=== PATIENT | female | born 1985 | race Caucasian/White ===

== ENCOUNTER 2018-07-25 12:36 | Emergency (ER) | payer MEDICAID ==
--- NOTE | 2018-07-25 13:05 | EDM.PDOC ---
ED HPI GENERAL MEDICAL PROBLEM - General Chief Complaint: Back Pain or Injury Stated Complaint: BACK PAIN Time Seen by Provider: 07/25/18 12:45 Source of Information: Reports: Patient History Limitations: Reports: No Limitations - History of Present Illness INITIAL COMMENTS - FREE TEXT/NARRATIVE: History of present illness: []Patient has chronic back pain since 2010 and recently moved here and is requesting pain medicines. Patient was here on July 20 and was not given any pain meds. She states that she has a pain doctor locally but refuses to give her pain meds because she admitted to using marijuana for pain. She has no new or changes in symptoms or new injuries. She denies any numbness or tingling or urinary or fecal incontinence. Review of systems: As per history of present illness and below otherwise all systems reviewed and negative. Past medical history: As per history of present illness and as reviewed below otherwise noncontributory. Surgical history: As per history of present illness and as reviewed below otherwise noncontributory. Social history: No reported history of drug or alcohol abuse. Family history: As per history of present illness and as reviewed below otherwise noncontributory. Physical exam: General: Well developed, well nourished in NAD HEENT: Atraumatic, normocephalic, pupils reactive, negative for conjunctival pallor or scleral icterus, mucous membranes moist, throat clear, neck supple, nontender, trachea midline. Lungs: Clear to auscultation, breath sounds equal bilaterally, chest nontender. Heart: S1S2, regular, negative for clicks, rubs, or JVD. Abdomen: Soft, nondistended, nontender. Negative for masses or hepatosplenomegaly. Negative for costovertebral tenderness. Pelvis: Stable nontender. Genitourinary: Deferred. Rectal: Deferred. Extremities: Atraumatic, negative for cords or calf pain. Neurovascular unremarkable. Neuro: Awake, alert, oriented. Cranial nerves II through XII unremarkable. Cerebellum unremarkable. Motor and sensory unremarkable throughout. Exam nonfocal. straight leg raise negative Skin:warm and dry Diagnostics: None Therapeutics: None ED Course: Unremarkable Impression: Chronic low back pain Prescriptions: Diclofenac # 20 tablets Plan: Follow-up primary care Definitive disposition and diagnosis as appropriate pending reevaluation and review of above. back Pain Score (Numeric/FACES): 9 - Related Data Allergies Allergy/AdvReac Type Severity Reaction Status Date / Time Penicillins Allergy Anaphylactic Verified 07/20/18 13:41 Shock ziprasidone [From Geodon] Allergy Anaphylactic Verified 07/25/18 13:02 Shock Home Meds: Home Meds Hydrocodone/Acetaminophen [Hydrocodon-Acetaminophen 5-325] 1 - 2 tab PO DAILY [History] Methylphenidate HCl [Ritalin] 10 mg PO DAILY 07/20/18 [History] Pantoprazole [ProTONIX] 40 mg PO DAILY 07/20/18 [History] Prazosin HCl [Prazosin] 4 mg PO DAILY 07/20/18 [History] QUEtiapine [SEROquel] 300 mg PO DAILY 07/20/18 [History] Topiramate 300 mg PO DAILY 07/20/18 [History] Diclofenac Sodium [Voltaren] 75 mg PO BIDMEALS PRN #20 tab.cr 07/25/18 [Rx] Past Medical History - Past Health History Medical/Surgical History: Denies Medical/Surgical History HEENT History: Reports: None Cardiovascular History: Reports: None Respiratory History: Reports: Asthma Gastrointestinal History: Reports: None Genitourinary History: Reports: None 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 Musculoskeletal History: Reports: None Neurological History: Reports: None Psychiatric History: Reports: Other (See Below) Other Psychiatric History: psych illness per pt Endocrine/Metabolic History: Reports: None Hematologic History: Reports: None Immunologic History: Reports: None Oncologic (Cancer) History: Reports: None Dermatologic History: Reports: None - Infectious Disease History Infectious Disease History: Reports: None - Past Surgical History Head Surgeries/Procedures: Reports: None HEENT Surgical History: Reports: None Cardiovascular Surgical History: Reports: None Respiratory Surgical History: Reports: None GI Surgical History: Reports: None Female Surgical History: Reports: None Endocrine Surgical History: Reports: None Neurological Surgical History: Reports: None Musculoskeletal Surgical History: Reports: None Oncologic Surgical History: Reports: None Dermatological Surgical History: Reports: None Social & Family History - Family History Family Medical History: Noncontributory Psychiatric: Reports: Depression - Caffeine Use Caffeine Use: Reports: Coffee ED ROS GENERAL - Review of Systems Review Of Systems: ROS reveals no pertinent complaints other than HPI. ED EXAM,LOWER BACK PAIN/INJURY - Physical Exam Exam: See Below (See history of present illness) Course - Vital Signs Last Recorded V/S: Last Vital Signs Temp 97.1 F 07/25/18 12:52 Pulse 89 07/25/18 12:52 Resp 20 07/25/18 12:52 BP 137/87 07/25/18 12:52 Pulse Ox 98 07/25/18 12:52 Departure - Departure Time of Disposition: 13:00 Disposition: Home, Self-Care 01 Condition: Good Clinical Impression: Chronic low back pain Qualifiers: Back pain laterality: midline Sciatica presence: without sciatica Qualified Code(s): M54.5 - Low back pain - Discharge Information *PRESCRIPTION DRUG MONITORING PROGRAM REVIEWED*: No *COPY OF PRESCRIPTION DRUG MONITORING REPORT IN PATIENT ZEFERINO: No Prescriptions: Diclofenac Sodium [Voltaren] 75 mg PO BIDMEALS PRN #20 tab.cr PRN Reason: Pain Instructions: Back Pain, Adult, [id number], Chronic Back Pain Referrals: PCP,None [Primary Care Provider] - Forms: ED Department Discharge Additional Instructions: The following information is given to patients seen in the emergency department who are being discharged to home. This information is to outline your options for follow-up care. We provide all patients seen in our emergency department with a follow-up referral. The need for follow-up, as well as the timing and circumstances, are variable depending upon the specifics of your emergency department visit. If you don't have a primary care physician on staff, we will provide you with a referral. We always advise you to contact your personal physician following an emergency department visit to inform them of the circumstance of the visit and for follow-up with them and/or the need for any referrals to a consulting specialist. The emergency department will also refer you to a specialist when appropriate. This referral assures that you have the opportunity for follow-up care with a specialist. All of these measure are taken in an effort to provide you with optimal care, which includes your follow-up. Under all circumstances we always encourage you to contact your private physician who remains a resource for coordinating your care. When calling for follow-up care, please make the office aware that this follow-up is from your recent emergency room visit. If for any reason you are refused follow-up, please contact the [facility] Emergency Department at and asked to speak to the emergency department charge nurse. Diclofenac as directed follow-up with primary care. [facility] [address] [place] [id number]
== END 2018-07-25 13:10 | disposition home or self-care (01) ==
LOC: MW.ED 12:36
DX: G89.29 Other chronic pain (principal); M54.5 Low back pain; Z88.0 Allergy status to penicillin; Z88.8 Allergy status to other drugs, medicaments and biological substances; Z79.899 Other long term (current) drug therapy
CPT/HCPCS: 99282; 99283

== ENCOUNTER 2020-07-26 11:06 | Emergency (ER) | payer MEDICAID ==
[2020-07-26] MEDS ORDERED: Metoclopramide 10 MG/2 ML SDV IVPUSH ONE (11:17)
[2020-07-26] MEDS ORDERED: Morphine 4 MG/ML Syringe IVPUSH ONE ×2 (11:17→12:51)
[2020-07-26] MEDS ORDERED: Sodium Chloride 0.9% 1,000 ML IV ONE (11:17)
[2020-07-26] MEDS ORDERED: Sodium Chloride 0.9% 2.5 ML Syringe FLUSH PRN (11:17)
[2020-07-26] MEDS ORDERED: Sodium Chloride 0.9% 10 ML Syringe FLUSH PRN (11:17)
--- NOTE | 2020-07-26 11:45 | EDM.PDOC ---
ED HPI GENERAL MEDICAL PROBLEM - General Chief Complaint: Abdominal Pain Stated Complaint: ANDOMINAL PAIN Time Seen by Provider: 07/26/20 11:14 Source of Information: Reports: Patient History Limitations: Reports: No Limitations - History of Present Illness INITIAL COMMENTS - FREE TEXT/NARRATIVE: 35F PMHx psych problems, haital hernia, PSHx cholecystectomy presents for N/V and abdominal pain x5 days. Pain is mid-epigastric radiating to back and worsening. Unable to tolerate PO solid for a couple of days. Hasn't taken psych meds b/c can't keep anything down. No urinary symptoms. No fevers. abdominal, epigastric Pain Score (Numeric/FACES): 8 - Related Data Allergies Allergy/AdvReac Type Severity Reaction Status Date / Time Penicillins Allergy Anaphylactic Verified 07/26/20 11:19 Shock ziprasidone [From Geodon] Allergy Anaphylactic Verified 07/26/20 11:19 Shock Home Meds: Home Meds Pantoprazole [ProTONIX] 40 mg PO DAILY 07/20/18 [History] QUEtiapine [SEROquel] 300 mg PO DAILY 07/20/18 [History] Topiramate 100 mg PO BID 07/20/18 [History] Gabapentin [Neurontin] 100 mg PO TID 09/08/18 [History] Albuterol [Proair HFA] 1 - 2 puff INH Q4HR PRN 07/26/20 [History] Budesonide/Formoterol [Symbicort 160-4.5 MCG] 1 puff INH BID 07/26/20 [History] Lisdexamfetamine Dimesylate [Vyvanse] 40 mg PO DAILY 07/26/20 [History] Metoclopramide HCl [Reglan] 10 mg PO Q6H PRN #20 tablet 07/26/20 [Rx] Montelukast [Singulair] 10 mg PO DAILY 07/26/20 [History] Tiotropium [Spiriva HandiHaler] 1 dose INH DAILY 07/26/20 [History] busPIRone [Buspar] 30 mg PO DAILY 07/26/20 [History] hydrOXYzine HCL [hydrOXYzine] 2 tab PO DAILY PRN 07/26/20 [History] lisinopriL [Lisinopril] 20 mg PO DAILY 07/26/20 [History] traZODone HCl [Trazodone HCl] 200 mg PO BEDTIME 07/26/20 [History] Past Medical History - Past Health History Medical/Surgical History: Denies Medical/Surgical History HEENT History: Reports: None Cardiovascular History: Reports: None Respiratory History: Reports: Asthma Gastrointestinal History: Reports: Hiatal Hernia Genitourinary History: Reports: None 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 Musculoskeletal History: Reports: Back Pain, Chronic Neurological History: Reports: Seizure Psychiatric History: Reports: Anxiety, Bipolar, Depression, Mood Swings, Schizophrenia Other Psychiatric History: psych illness per pt Endocrine/Metabolic History: Reports: None Hematologic History: Reports: None Immunologic History: Reports: None Oncologic (Cancer) History: Reports: None Dermatologic History: Reports: None - Infectious Disease History Infectious Disease History: Reports: None - Past Surgical History Head Surgeries/Procedures: Reports: None HEENT Surgical History: Reports: None Cardiovascular Surgical History: Reports: None Respiratory Surgical History: Reports: None GI Surgical History: Reports: Cholecystectomy, Other (See Below) Other GI Surgeries/Procedures: STomach biopsy Female Surgical History: Reports: None Endocrine Surgical History: Reports: None Neurological Surgical History: Reports: None Musculoskeletal Surgical History: Reports: Other (See Below) Other Musculoskeletal Surgeries/Procedures:: 2 back surgeries Oncologic Surgical History: Reports: None Dermatological Surgical History: Reports: None Social & Family History - Family History Family Medical History: Noncontributory Psychiatric: Reports: Depression - Tobacco Use Smoking Status *Q: Current Every Day Smoker Years of Tobacco use: 20 Packs/Tins Daily: 0.5 - Caffeine Use Caffeine Use: Reports: Coffee, Energy Drinks, Soda, Tea - Recreational Drug Use Recreational Drug Use: Yes Drug Use in Last 12 Months: Yes Recreational Drug Type: Reports: Marijuana/Hashish Recreational Drug Use Frequency: Weekly ED ROS GENERAL - Review of Systems Review Of Systems: Comprehensive ROS is negative, except as noted in HPI. ED EXAM, GI/ABD - Physical Exam Exam: See Below Exam Limited By: No Limitations General Appearance: Alert, WD/WN, No Apparent Distress Throat/Mouth: Normal Voice, No Airway Compromise Head: Atraumatic, Normocephalic Neck: Normal Inspection Respiratory/Chest: No Respiratory Distress, Lungs Clear, Normal Breath Sounds, No Accessory Muscle Use Cardiovascular: Normal Peripheral Pulses, Regular Rate, Rhythm GI/Abdominal Exam: Soft, Non-Tender Extremities: Normal Inspection Neurological: Alert Psychiatric: Normal Affect, Normal Mood Skin Exam: Warm, Dry, Intact Course - Vital Signs Last Recorded V/S: Last Vital Signs Temp 97.1 F 07/26/20 13:35 Pulse 63 07/26/20 13:35 Resp 18 07/26/20 13:35 BP 127/69 07/26/20 13:35 Pulse Ox 96 07/26/20 13:35 - Orders/Labs/Meds Orders: Active Orders 24 hr Category Date Time Status Saline Lock Insert [OM.PC] Stat Oth 07/26/20 11:18 Ordered Labs: Laboratory Tests 07/26/20 07/26/20 07/26/20 Range/Units 11:27 11:27 11:27 WBC 10.00 (4.0-11.0) K/uL RBC 5.14 (4.30-5.90) M/uL Hgb 15.4 (12.0-16.0) g/dL Hct 44.4 (36.0-46.0) % MCV 86.4 (80.0-98.0) fL MCH 30.0 (27.0-32.0) pg MCHC 34.7 (31.0-37.0) g/dL RDW Std Deviation 43.3 (28.0-62.0) fl RDW Coeff of Mara 14 (11.0-15.0) % Plt Count 399 (150-400) K/uL MPV 9.40 (7.40-12.00) fL Neut % (Auto) 63.5 (48.0-80.0) % Lymph % (Auto) 25.7 (16.0-40.0) % Weak[place] % (Auto) 7.0 (0.0-15.0) % Eos % (Auto) 3.4 (0.0-7.0) % Baso % (Auto) 0.4 (0.0-1.5) % Neut # (Auto) 6.4 H (1.4-5.7) K/uL Lymph # (Auto) 2.6 H (0.6-2.4) K/uL Weakley # (Auto) 0.7 (0.0-0.8) K/uL Eos # (Auto) 0.3 (0.0-0.7) K/uL Baso # (Auto) 0.0 (0.0-0.1) K/uL Nucleated RBC % 0.0 /100WBC Nucleated RBCs # 0 K/uL Lactate 1.1 (0.20-2.00) mmol/L Sodium 139 (136-145) mmol/L Potassium 3.3 L (3.5-5.1) mmol/L Chloride 104 (98-107) mmol/L Carbon Dioxide 20.2 L (21.0-32.0) mmol/L BUN 7 (7.0-18.0) mg/dL Creatinine 1.1 H (0.6-1.0) mg/dL Est Cr Clr Drug Dosing 73.38 mL/min Estimated GFR (MDRD) 57.2 ml/min Glucose 104 (74-106) mg/dL Calcium 8.6 (8.5-10.1) mg/dL Magnesium 2.0 (1.8-2.4) mg/dL Total Bilirubin 0.5 (0.2-1.0) mg/dL AST 17 (15-37) IU/L ALT 29 (14-63) IU/L Alkaline Phosphatase 70 (46-116) U/L Total Protein 8.1 (6.4-8.2) g/dL Albumin 4.2 (3.4-5.0) g/dL Globulin 3.9 (2.6-4.0) g/dL Albumin/Globulin Ratio 1.1 (0.9-1.6) Lipase 68 L (73-393) U/L Urine Color Urine Appearance Urine pH (5.0-8.0) Ur Specific [place] (1.001-1.035) Urine Protein (NEGATIVE) mg/dL Urine Glucose (UA) (NEGATIVE) mg/dL Urine Ketones (NEGATIVE) mg/dL Urine Occult Blood (NEGATIVE) Urine Nitrite (NEGATIVE) Urine Bilirubin (NEGATIVE) Urine Ictotest Urine Urobilinogen (<2.0) EU/dL Ur Leukocyte Esterase (NEGATIVE) Urine RBC (0-2/HPF) Urine WBC (0-5/HPF) Ur Epithelial Cells (NONE-FEW) Amorphous Sediment (NEGATIVE) Urine Bacteria (NEGATIVE) Urine Mucus (NONE-MOD) Urine HCG, Qual (NEGATIVE) 07/26/20 07/26/20 Range/Units 11:30 11:30 WBC (4.0-11.0) K/uL RBC (4.30-5.90) M/uL Hgb (12.0-16.0) g/dL Hct (36.0-46.0) % MCV (80.0-98.0) fL MCH (27.0-32.0) pg MCHC (31.0-37.0) g/dL RDW Std Deviation (28.0-62.0) fl RDW Coeff of Mara (11.0-15.0) % Plt Count (150-400) K/uL MPV (7.40-12.00) fL Neut % (Auto) (48.0-80.0) % Lymph % (Auto) (16.0-40.0) % Weakley % (Auto) (0.0-15.0) % Eos % (Auto) (0.0-7.0) % Baso % (Auto) (0.0-1.5) % Neut # (Auto) (1.4-5.7) K/uL Lymph # (Auto) (0.6-2.4) K/uL Weakley # (Auto) (0.0-0.8) K/uL Eos # (Auto) (0.0-0.7) K/uL Baso # (Auto) (0.0-0.1) K/uL Nucleated RBC % /100WBC Nucleated RBCs # K/uL Lactate (0.20-2.00) mmol/L Sodium (136-145) mmol/L Potassium (3.5-5.1) mmol/L Chloride (98-107) mmol/L Carbon Dioxide (21.0-32.0) mmol/L BUN (7.0-18.0) mg/dL Creatinine (0.6-1.0) mg/dL Est Cr Clr Drug Dosing mL/min Estimated GFR (MDRD) ml/min Glucose (74-106) mg/dL Calcium (8.5-10.1) mg/dL Magnesium (1.8-2.4) mg/dL Total Bilirubin (0.2-1.0) mg/dL AST (15-37) IU/L ALT (14-63) IU/L Alkaline Phosphatase (46-116) U/L Total Protein (6.4-8.2) g/dL Albumin (3.4-5.0) g/dL Globulin (2.6-4.0) g/dL Albumin/Globulin Ratio (0.9-1.6) Lipase (73-393) U/L Urine Color YELLOW Urine Appearance SLT CLOUDY Urine pH 5.5 (5.0-8.0) Ur Specific [place] >= 1.030 (1.001-1.035) Urine Protein NEGATIVE (NEGATIVE) mg/dL Urine Glucose (UA) NEGATIVE (NEGATIVE) mg/dL Urine Ketones TRACE H (NEGATIVE) mg/dL Urine Occult Blood MODERATE H (NEGATIVE) Urine Nitrite NEGATIVE (NEGATIVE) Urine Bilirubin SMALL H (NEGATIVE) Urine Ictotest NEGATIVE Urine Urobilinogen 0.2 (<2.0) EU/dL Ur Leukocyte Esterase NEGATIVE (NEGATIVE) Urine RBC 4-6 (0-2/HPF) Urine WBC 0-2 (0-5/HPF) Ur Epithelial Cells MODERATE (NONE-FEW) Amorphous Sediment MODERATE (NEGATIVE) Urine Bacteria 1+ H (NEGATIVE) Urine Mucus LIGHT (NONE-MOD) Urine HCG, Qual NEGATIVE (NEGATIVE) Meds: Medications Discontinued Medications Generic Name Dose Route Start Last Admin Trade Name Freq PRN Reason Stop Dose Admin Sodium Chloride 1,000 mls @ 999 mls/hr 07/26/20 11:17 07/26/20 11:45 Normal Saline IV 07/26/20 12:17 999 mls/hr .Bolus ONE Administration Metoclopramide HCl 10 mg 07/26/20 11:17 07/26/20 11:45 Reglan IVPUSH 07/26/20 11:18 10 mg ONETIME ONE Administration Morphine Sulfate 4 mg 07/26/20 11:17 07/26/20 11:45 Morphine IVPUSH 07/26/20 11:18 4 mg ONETIME ONE Administration Morphine Sulfate 4 mg 07/26/20 12:51 07/26/20 13:00 Morphine IVPUSH 07/26/20 12:52 4 mg ONETIME ONE Administration Sodium Chloride 2.5 ml 07/26/20 11:17 07/26/20 11:46 Saline Flush FLUSH 2.5 ml ASDIRECTED PRN Administration Keep Vein Open Sodium Chloride 10 ml 07/26/20 11:17 07/26/20 11:46 Saline Flush FLUSH 10 ml ASDIRECTED PRN Administration Keep Vein Open - Re-Assessments/Exams Free Text/Narrative Re-Assessment/Exam: 07/26/20 11:45 Will get labs, will treat pain, IVFB for dehydration/volume loss, will repeat BP as I suspect initial BP was not accurate. 07/26/20 12:29 Patient's labs grossly unremarkable, mild hypokalemia, mild elevated Cr to 1.1. 1-L IVFB is running. Patient feels great relief after morphine/reglan. She is trying some PO water. I do not see indication for CT imaging as patient was with non-tender abdomen and without lab abnormalities. Will reassess after PO water and anticipate d/c with reglan and GI f/u. 07/26/20 18:17 Patient tolerates PO, will d/c with PMD f/u Departure - Departure Time of Disposition: 12:30 Disposition: Home, Self-Care 01 Condition: Good Clinical Impression: Hiatal hernia - Discharge Information Prescriptions: Metoclopramide HCl [Reglan] 10 mg PO Q6H PRN #20 tablet PRN Reason: Nausea/Vomiting Instructions: Hernia, Adult, [id number] Referrals: Becky Michael MD [Primary Care Provider] - Forms: ED Department Discharge Additional Instructions: The following information is given to patients seen in the emergency department who are being discharged to home. This information is to outline your options for follow-up care. We provide all patients seen in our emergency department with a follow-up referral. The need for follow-up, as well as the timing and circumstances, are variable depending upon the specifics of your emergency department visit. If you don't have a primary care physician on staff, we will provide you with a referral. We always advise you to contact your personal physician following an emergency department visit to inform them of the circumstance of the visit and for follow-up with them and/or the need for any referrals to a consulting specialist. The emergency department will also refer you to a specialist when appropriate. This referral assures that you have the opportunity for follow-up care with a specialist. All of these measure are taken in an effort to provide you with optimal care, which includes your follow-up. Under all circumstances we always encourage you to contact your private physician who remains a resource for coordinating your care. When calling for follow-up care, please make the office aware that this follow-up is from your recent emergency room visit. If for any reason you are refused follow-up, please contact the [facility] Emergency Department at and asked to speak to the emergency department charge nurse. Please follow up with your primary care physician. If you do not have a primary care physician, see below: [facility] [address] [place] [id number] My [facility] [address] [place] [address] You should also follow up with a GI physician, the nearest one being in [place]. You can call [facility] at [phone] to set up an appointment Sepsis Event Note (ED) - Evaluation Sepsis Screening Result: No Definite Risk - Focused Exam Vital Signs: Vital Signs Temp Pulse Resp BP Pulse Ox 07/26/20 13:35 97.1 F 63 18 127/69 96 07/26/20 13:03 97.3 F 86 20 134/79 97 07/26/20 11:59 84 18 140/78 95 07/26/20 11:15 97 F 94 18 74/55 L 97 - My Orders Last 24 Hours: My Active Orders 07/26/20 11:18 Saline Lock Insert [OM.PC] Stat - Assessment/Plan Last 24 Hours: My Active Orders 07/26/20 11:18 Saline Lock Insert [OM.PC] Stat
[2020-07-26 12:14] LABS: CARBON DIOXIDE,CO2 20.2 mmol/L (21.0-32.0); POTASSIUM,K 3.3 mmol/L (3.5-5.1)
== END 2020-07-26 13:35 | disposition home or self-care (01) ==
LOC: MW.ED 11:06
DX: K44.9 Diaphragmatic hernia without obstruction or gangrene (principal); J45.909 Unspecified asthma, uncomplicated; F31.9 Bipolar disorder, unspecified; F41.9 Anxiety disorder, unspecified; R56.9 Unspecified convulsions; F20.9 Schizophrenia, unspecified; F17.210 Nicotine dependence, cigarettes, uncomplicated; Z88.0 Allergy status to penicillin; Z88.8 Allergy status to other drugs, medicaments and biological substances; Z79.899 Other long term (current) drug therapy
CPT/HCPCS: 36415; 80053; 81001; 81025; 83605; 83690; 83735; 85025; 96361; 96374; 96375; 96376; 99284; J2270; J2765; J7030

== ENCOUNTER 2020-07-27 07:35 | Emergency (ER) | payer MEDICAID ==
[2020-07-27] MEDS ORDERED: Sodium Chloride 0.9% 10 ML Syringe FLUSH PRN (07:40)
[2020-07-27] MEDS ORDERED: Sodium Chloride 0.9% 2.5 ML Syringe FLUSH PRN (07:40)
--- NOTE | 2020-07-27 07:40 | EDM.PDOC ---
ED HPI GENERAL MEDICAL PROBLEM - General Chief Complaint: Abdominal Pain Stated Complaint: ABD. PAIN Time Seen by Provider: 07/27/20 07:37 Source of Information: Reports: Patient, Old Records History Limitations: Reports: No Limitations - History of Present Illness INITIAL COMMENTS - FREE TEXT/NARRATIVE: 35-year-old female past medical history of hypertension, GERD, hiatal hernia, status post cholecystectomy, asthma presenting with abdominal pain. Seen in our emergency department yesterday for abdominal pain, nausea, and vomiting. Labs that showed mild hypokalemia, mildly elevated creatinine, normal LFTs and lipase, reassuring cell lines on CBC. Urinalysis showed trace ketones, moderate occult blood, 1+ bacteria but negative nitrites and negative leukocyte esterase. Negative UPT. Patient was treated with IV morphine and Reglan along with 1 L of normal saline. [place] better after morphine/Reglan, imaging was deferred due to well appearance with nontender abdomen. She was discharged home with prescription for Reglan and instructed to follow-up with primary care. Today, she presents back to the emergency department complaining of persistent nausea and recurrent vomiting. Not having any abdominal pain right now. Reports multiple episodes of nonbloody emesis since being discharged in the ER yesterday. 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 No [id number] self treatment prior to arrival. Denies fever, hematemesis, diarrhea, rectal bleeding, dysuria, urinary frequency, or vaginal bleeding. No sick contacts. ROS: A 10-point review of systems was negative, except as noted in the HPI (or in the ROS section of this note). Past medical history: Reviewed, no additional pertinent history. Surgical history: Reviewed in system, no additional pertinent history. Social history: Reviewed in system, no additional pertinent history. Family history: Reviewed in system, no additional pertinent history. PHYSICAL EXAM Vital signs reviewed. Nursing notes reviewed. Constitutional: Awake, alert, non-distressed. Head: Normocephalic, atraumatic. Eyes: EOMI, conjunctiva normal, no discharge, no scleral icterus. Ears, Nose, Throat: External ears and nose normal, moist oral mucosa. Cardiovascular: 2+ radial pulse, capillary refill less than 2 seconds. Pulmonary: normal work of breathing, no accessory muscle use. Abdomen/GI: Soft, nontender, nondistended, no guarding or rigidity, no masses. No CVA tenderness. Musculoskeletal: No deformities. Integumentary: Appropriate color for ethnicity, warm, dry, no pallor or jaundice, no rash. Neurologic: Alert, answering questions appropriately, normal speech, no facial droop, moving all extremities well. Psychiatric: Appropriate mood and affect, normal thought process. epigastric Pain Score (Numeric/FACES): 6 - Related Data Allergies Allergy/AdvReac Type Severity Reaction Status Date / Time Penicillins Allergy Anaphylactic Verified 07/27/20 07:42 Shock ziprasidone [From Geodon] Allergy Anaphylactic Verified 07/27/20 07:42 Shock Home Meds: Home Meds Pantoprazole [ProTONIX] 40 mg PO DAILY 07/20/18 [History] QUEtiapine [SEROquel] 300 mg PO DAILY 07/20/18 [History] Topiramate 100 mg PO BID 07/20/18 [History] Gabapentin [Neurontin] 100 mg PO TID 09/08/18 [History] Albuterol [Proair HFA] 1 - 2 puff INH Q4HR PRN 07/26/20 [History] Budesonide/Formoterol [Symbicort 160-4.5 MCG] 1 puff INH BID 07/26/20 [History] Lisdexamfetamine Dimesylate [Vyvanse] 40 mg PO DAILY 07/26/20 [History] Metoclopramide HCl [Reglan] 10 mg PO Q6H PRN #20 tablet 07/26/20 [Rx] Montelukast [Singulair] 10 mg PO DAILY 07/26/20 [History] Tiotropium [Spiriva HandiHaler] 1 dose INH DAILY 07/26/20 [History] busPIRone [Buspar] 30 mg PO DAILY 07/26/20 [History] hydrOXYzine HCL [hydrOXYzine] 2 tab PO DAILY PRN 07/26/20 [History] lisinopriL [Lisinopril] 20 mg PO DAILY 07/26/20 [History] traZODone HCl [Trazodone HCl] 200 mg PO BEDTIME 07/26/20 [History] Magnesium Chloride [Mag Delay] 64 mg PO BID 7 Days #14 tablet.dr 07/27/20 [Rx] Metoclopramide HCl 10 mg PO Q6H PRN #10 tablet 07/27/20 [Rx] Ondansetron [Ondansetron ODT] 4 mg PO Q6H PRN #10 tab.rapdis 07/27/20 [Rx] Past Medical History - Past Health History Medical/Surgical History: Denies Medical/Surgical History HEENT History: Reports: None Cardiovascular History: Reports: None Respiratory History: Reports: Asthma Gastrointestinal History: Reports: Hiatal Hernia Genitourinary History: Reports: None 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 Musculoskeletal History: Reports: Back Pain, Chronic Neurological History: Reports: Seizure Psychiatric History: Reports: Anxiety, Bipolar, Depression, Mood Swings, Schizophrenia Other Psychiatric History: psych illness per pt Endocrine/Metabolic History: Reports: None Hematologic History: Reports: None Immunologic History: Reports: None Oncologic (Cancer) History: Reports: None Dermatologic History: Reports: None - Infectious Disease History Infectious Disease History: Reports: None - Past Surgical History Head Surgeries/Procedures: Reports: None HEENT Surgical History: Reports: None Cardiovascular Surgical History: Reports: None Respiratory Surgical History: Reports: None GI Surgical History: Reports: Cholecystectomy, Other (See Below) Other GI Surgeries/Procedures: STomach biopsy Female Surgical History: Reports: None Endocrine Surgical History: Reports: None Neurological Surgical History: Reports: None Musculoskeletal Surgical History: Reports: Other (See Below) Other Musculoskeletal Surgeries/Procedures:: 2 back surgeries Oncologic Surgical History: Reports: None Dermatological Surgical History: Reports: None Social & Family History - Family History Family Medical History: Noncontributory Psychiatric: Reports: Depression - Caffeine Use Caffeine Use: Reports: Coffee, Energy Drinks, Soda, Tea ED ROS GENERAL - Review of Systems Review Of Systems: See Below ED EXAM, GI/ABD - Physical Exam Exam: See Below Course - Vital Signs Text/Narrative:: Patient hemodynamically stable, afebrile, well-appearing, looks nontoxic. Differential diagnosis includes but is not limited to: Gastritis, peptic ulcer disease, gastroenteritis, pancreatitis, acute hepatitis, de lexi stone, less likely acute coronary syndrome, less likely bowel obstruction or ileus, etc. Today's labs show normal cell lines. Normal lactate. Metabolic panel shows mild hypokalemia, stable creatinine elevation at 1.1. Glucose 116. Mildly elevated AST at 77, ALT of 126, alkaline phosphatase at 117 but bilirubin is normal. Lipase is within normal limits. Abdomen is soft and nontender. Treated with Zofran and a GI cocktail and felt much better. Nausea resolved and tolerating p.o. intake. Still not having any abdominal pain. Remains hemodynamically stable. Bilirubin is normal despite other LFT elevations, given lack of right upper quadrant abdominal pain, I have a low suspicion for acute hepatitis. Given status post cholecystectomy status with no abdominal pain and normal bilirubin, we did not pursue a right upper quadrant ultrasound study or CT. Low suspicion for ACS given lack of any pain including chest discomfort, lack of shortness of breath. Abdomen is soft, nontender, nondistended so low suspicion for an intra-abdominal surgical emergency at this point. Plan will be to discharge the patient home with prescriptions for ODT Zofran and Reglan and recommendations for OTC Maalox max for any abdominal pain. We will have her follow-up with her primary medical clinic in the next few days for reevaluation and to have her serum potassium and her LFTs rechecked. Plan: Patient is stable to discharge home with outpatient primary care clinic follow-up. Strict emergency department return precautions were provided, patient indicated understanding. All questions were answered prior to departure. Discharged in good condition. Last Recorded V/S: Last Vital Signs Temp 35.9 C L 07/27/20 07:39 Pulse 92 07/27/20 07:39 Resp 20 07/27/20 07:39 BP 133/71 07/27/20 07:39 Pulse Ox 95 07/27/20 07:39 - Orders/Labs/Meds Orders: Active Orders 24 hr Category Date Time Status Pulse Oximetry [RC] ASDIRECTED Care 07/27/20 07:40 Active Nothing Per Oral Diet [DIET] Diet 07/27/20 Breakfast Active Sodium Chloride 0.9% [Saline Flush] Med 07/27/20 07:40 Active 10 ml FLUSH ASDIRECTED PRN Sodium Chloride 0.9% [Saline Flush] Med 07/27/20 07:40 Active 2.5 ml FLUSH ASDIRECTED PRN Saline Lock Insert [OM.PC] Stat Oth 07/27/20 07:40 Ordered Medication Orders Sodium Chloride (Saline Flush) 10 ml FLUSH ASDIRECTED PRN PRN Reason: Keep Vein Open Last Admin: 07/27/20 08:05 Dose: 10 ml Documented by: ANJU Sodium Chloride (Saline Flush) 2.5 ml FLUSH ASDIRECTED PRN PRN Reason: Keep Vein Open Last Admin: 07/27/20 08:05 Dose: 2.5 ml Documented by: ANJU Labs: Laboratory Tests 07/27/20 07/27/20 07/27/20 Range/Units 07:47 07:47 07:47 WBC 9.94 (4.0-11.0) K/uL RBC 5.18 (4.30-5.90) M/uL Hgb 15.7 (12.0-16.0) g/dL Hct 44.4 (36.0-46.0) % MCV 85.7 (80.0-98.0) fL MCH 30.3 (27.0-32.0) pg MCHC 35.4 (31.0-37.0) g/dL RDW Std Deviation 42.7 (28.0-62.0) fl RDW Coeff of Mara 14 (11.0-15.0) % Plt Count 389 (150-400) K/uL MPV 9.20 (7.40-12.00) fL Neut % (Auto) 74.2 (48.0-80.0) % Lymph % (Auto) 17.5 (16.0-40.0) % Casey % (Auto) 6.4 (0.0-15.0) % Eos % (Auto) 1.5 (0.0-7.0) % Baso % (Auto) 0.4 (0.0-1.5) % Neut # (Auto) 7.4 H (1.4-5.7) K/uL Lymph # (Auto) 1.7 (0.6-2.4) K/uL Casey # (Auto) 0.6 (0.0-0.8) K/uL Eos # (Auto) 0.2 (0.0-0.7) K/uL Baso # (Auto) 0.0 (0.0-0.1) K/uL Nucleated RBC % 0.0 /100WBC Nucleated RBCs # 0 K/uL Lactate 1.1 (0.20-2.00) mmol/L Sodium 138 (136-145) mmol/L Potassium 3.2 L (3.5-5.1) mmol/L Chloride 102 (98-107) mmol/L Carbon Dioxide 21.1 (21.0-32.0) mmol/L BUN 10 (7.0-18.0) mg/dL Creatinine 1.1 H (0.6-1.0) mg/dL Est Cr Clr Drug Dosing 73.38 mL/min Estimated GFR (MDRD) 57.2 ml/min Glucose 116 H (74-106) mg/dL Calcium 9.0 (8.5-10.1) mg/dL Total Bilirubin 0.5 (0.2-1.0) mg/dL AST 77 H (15-37) IU/L ALT 126 H (14-63) IU/L Alkaline Phosphatase 117 H (46-116) U/L Total Protein 8.1 (6.4-8.2) g/dL Albumin 4.4 (3.4-5.0) g/dL Globulin 3.7 (2.6-4.0) g/dL Albumin/Globulin Ratio 1.2 (0.9-1.6) Lipase 164 (73-393) U/L Meds: Medications Generic Name Dose Route Start Last Admin Trade Name Freq PRN Reason Stop Dose Admin Sodium Chloride 10 ml 07/27/20 07:40 07/27/20 08:05 Saline Flush FLUSH 10 ml ASDIRECTED PRN Administration Keep Vein Open Sodium Chloride 2.5 ml 07/27/20 07:40 07/27/20 08:05 Saline Flush FLUSH 2.5 ml ASDIRECTED PRN Administration Keep Vein Open Discontinued Medications Generic Name Dose Route Start Last Admin Trade Name Freq PRN Reason Stop Dose Admin Al Hydroxide/Mg Hydroxide 15 0 ml 07/27/20 07:55 07/27/20 08:03 ml/ Lidocaine HCl 5 ml PO 07/27/20 07:56 20 each ONETIME ONE Administration Ondansetron HCl 4 mg 07/27/20 07:55 07/27/20 08:03 Zofran IVPUSH 07/27/20 07:56 4 mg ONETIME ONE Administration Departure - Departure Time of Disposition: 08:25 Disposition: Home, Self-Care 01 Condition: Good Clinical Impression: Nausea and vomiting in adult, Hypokalemia - Discharge Information *PRESCRIPTION DRUG MONITORING PROGRAM REVIEWED*: Not Applicable *COPY OF PRESCRIPTION DRUG MONITORING REPORT IN PATIENT ZEFERINO: Not Applicable Prescriptions: Magnesium Chloride [Mag Delay] 64 mg PO BID 7 Days #14 tablet. Metoclopramide HCl 10 mg PO Q6H PRN #10 tablet PRN Reason: Nausea/Vomiting Ondansetron [Ondansetron ODT] 4 mg PO Q6H PRN #10 tab.rapdis PRN Reason: Nausea/Vomiting Instructions: Hypokalemia, Nausea and Vomiting, Adult, Potassium Content of Foods Referrals: Becky Michael MD [Primary Care Provider] - 1 Week (For reevaluation of your symptoms and for recheck of your potassium and liver function tests.) Forms: ED Department Discharge Additional Instructions: You were seen in the emergency department for nausea and vomiting. Your blood work is reassuring except your potassium level is slightly low and some of your liver function tests are slightly elevated, which can be seen with repeated vomiting. We are going to give you a list of foods that you can help take to raise your potassium level. I am also going to prescribe some magnesium. Given the you are not having any abdominal pain, your vital signs are normal, and you are not having any bleeding, we do not need to obtain CT imaging or an ultrasound study at this point. I am going to prescribe some dissolvable Zofran tablets and Reglan for any repeated vomiting at home. I would like for you to follow-up with your primary doctor the next 3 to 5 days for reevaluation and to have your potassium level and your liver function tests rechecked. Warning signs to come back to the ER include severe abdominal pain, recurrent vomiting, bloody vomit, bloody bowel movements, fever, or any other new or concerning symptoms. Please return the emergency department immediately if your symptoms worsen or if you feel worse. Thank you for choosing the [facility] emergency department in [place] for your medical needs today. It was a pleasure caring for you. The following information is given to patients seen in the emergency department who are being discharged. This information is to outline your options for follow-up care. We provide all patients seen in our emergency department with a follow-up referral. The need for follow-up, as well as the timing and circumstances, are variable depending upon the specifics of your emergency department visit. If you don't have a primary care physician on staff, we will provide you with a referral. We always advise you to contact your personal physician following an emergency department visit to inform them of the circumstance of the visit and for follow-up with them and/or the need for any referrals to a consulting specialist. The emergency department will also refer you to a specialist when appropriate. This referral assures that you have the opportunity for follow-up care with a specialist. All of these measure are taken in an effort to provide you with optimal care, which includes your follow-up. Under all circumstances we always encourage you to contact your private physician who remains a resource for coordinating your care. When calling for follow-up care, please make the office aware that this follow-up is from your recent emergency room visit. If for any reason you are refused follow-up, please contact the [facility] Emergency Department at and asked to speak to the emergency department charge nurse. If you do not have a primary care physician that is caring for you, you can contact these clinics below to set up an appointment to establish care: [facility] - Primary Care [address] [place] [id number] [facility] [address] [place] [id number] Sepsis Event Note (ED) - Focused Exam Vital Signs: Vital Signs Temp Pulse Resp BP Pulse Ox 07/27/20 07:39 35.9 C L 92 20 133/71 95 - My Orders Last 24 Hours: My Active Orders 07/27/20 Breakfast Nothing Per Oral Diet [DIET] 07/27/20 07:40 Pulse Oximetry [RC] ASDIRECTED Sodium Chloride 0.9% [Saline Flush] 10 ml FLUSH ASDIRECTED PRN Sodium Chloride 0.9% [Saline Flush] 2.5 ml FLUSH ASDIRECTED PRN Saline Lock Insert [OM.PC] Stat - Assessment/Plan Last 24 Hours: My Active Orders 07/27/20 Breakfast Nothing Per Oral Diet [DIET] 07/27/20 07:40 Pulse Oximetry [RC] ASDIRECTED Sodium Chloride 0.9% [Saline Flush] 10 ml FLUSH ASDIRECTED PRN Sodium Chloride 0.9% [Saline Flush] 2.5 ml FLUSH ASDIRECTED PRN Saline Lock Insert [OM.PC] Stat
[2020-07-27] MEDS ORDERED: Ondansetron 4 MG/2 ML SDV IVPUSH ONE (07:55)
[2020-07-27] MEDS ORDERED: Alum Hydrox/Mag Hydrox/Simeth 15 ML, Lidocaine 2% 5 ML PO ONE ×2 (07:55)
[2020-07-27 08:14] LABS: CARBON DIOXIDE,CO2 21.1 mmol/L (21.0-32.0); POTASSIUM,K 3.2 mmol/L (3.5-5.1)
== END 2020-07-27 08:40 | disposition home or self-care (01) ==
LOC: MW.ED 07:35
DX: E87.6 Hypokalemia (principal); R11.2 Nausea with vomiting, unspecified; J45.909 Unspecified asthma, uncomplicated; F41.9 Anxiety disorder, unspecified; F31.9 Bipolar disorder, unspecified; F20.9 Schizophrenia, unspecified; R56.9 Unspecified convulsions; K21.9 Gastro-esophageal reflux disease without esophagitis; I10 Essential (primary) hypertension; Z88.0 Allergy status to penicillin; Z88.8 Allergy status to other drugs, medicaments and biological substances; Z90.49 Acquired absence of other specified parts of digestive tract; Z79.899 Other long term (current) drug therapy
CPT/HCPCS: 36415; 80053; 83605; 83690; 85025; 96374; 99284; A9270; J2405

== ENCOUNTER 2020-07-27 18:16 | Emergency (ER) | payer MEDICAID | END 2020-07-27 19:35 | disposition left against medical advice (07) | LOC: MW.ED 18:16 | DX: Z53.21 Procedure and treatment not carried out due to patient leaving prior to being seen by health care provider (principal) ==

== ENCOUNTER 2020-07-28 06:54 | Observation (INO) | payer MEDICAID, OTHER ==
[2020-07-28] MEDS ORDERED: Sodium Chloride 0.9% 2.5 ML Syringe FLUSH PRN ×2 (07:02→12:36)
[2020-07-28] MEDS ORDERED: Metoclopramide 10 MG/2 ML SDV IVPUSH ONE (07:02)
[2020-07-28] MEDS ORDERED: Lactated Ringers 1,000 ML IV ONE (07:02)
[2020-07-28] MEDS ORDERED: Sodium Chloride 0.9% 10 ML Syringe FLUSH PRN (07:02)
[2020-07-28] MEDS ORDERED: Alum Hydrox/Mag Hydrox/Simeth 15 ML, Lidocaine 2% 5 ML PO ONE ×2 (07:23)
--- NOTE | 2020-07-28 07:23 | EDM.PDOC ---
ED HPI GENERAL MEDICAL PROBLEM - General Chief Complaint: Gastrointestinal Problem Stated Complaint: VOMITING FOR 3 DAYS Time Seen by Provider: 07/28/20 06:59 Source of Information: Reports: Patient, Old Records History Limitations: Reports: No Limitations - History of Present Illness INITIAL COMMENTS - FREE TEXT/NARRATIVE: 34-year-old female with past medical history of hypertension, GERD, hiatal hernia, status post cholecystectomy, and asthma presenting with abdominal pain and heartburn. Seen by myself personally approximately 24 hours ago the emergency department. She has had multiple ED visits over the past several days for identical complaints. She presents the ER complaining of persistent nausea and nonbloody emesis for several days. Reports a sensation of acid in the back of her throat. She was prescribed ODT ondansetron and p.o. metoclopramide yesterday but she only took 1 dose of each before she stopped taking her prescribed medications. She complains of ongoing nausea and vomiting, at least one episode every hour since midnight. She complains of throat discomfort and the sensation of tasting acid. Denies any hematemesis. Denies any abdominal pain or rectal bleeding, fever. No sick contacts. ROS: A 10-point review of systems was negative, except as noted in the HPI (or in the ROS section of this note). Past medical history: Reviewed, no additional pertinent history. Surgical history: Reviewed in system, no additional pertinent history. Social history: Reviewed in system, no additional pertinent history. Family history: Reviewed in system, no additional pertinent history. PHYSICAL EXAM Vital signs reviewed. Nursing notes reviewed. Constitutional: Awake, alert, non-distressed. Head: Normocephalic, atraumatic. Eyes: EOMI, conjunctiva normal, no discharge, no scleral icterus. Ears, Nose, Throat: External ears and nose normal, moist oral mucosa. Cardiovascular: 2+ radial pulse, capillary refill less than 2 seconds. Pulmonary: normal work of breathing, no accessory muscle use. Abdomen/GI: Soft, nontender, nondistended, no guarding or rigidity, no masses. Musculoskeletal: No deformities. Integumentary: Appropriate color for ethnicity, warm, dry, no pallor or jaundice, no rash. Neurologic: Alert, answering questions appropriately, normal speech, no facial droop, moving all extremities well. Psychiatric: Appropriate mood and affect, normal thought process. Throat Pain Score (Numeric/FACES): 9 - Related Data Allergies Allergy/AdvReac Type Severity Reaction Status Date / Time Penicillins Allergy Anaphylactic Verified 07/28/20 07:09 Shock ziprasidone [From Geodon] Allergy Hives Verified 07/28/20 07:09 Home Meds: Home Meds Pantoprazole [ProTONIX] 40 mg PO DAILY 07/20/18 [History] QUEtiapine [SEROquel] 300 mg PO DAILY 07/20/18 [History] Topiramate 100 mg PO BID 07/20/18 [History] Gabapentin [Neurontin] 100 mg PO TID 09/08/18 [History] Albuterol [Proair HFA] 1 - 2 puff INH Q4HR PRN 07/26/20 [History] Budesonide/Formoterol [Symbicort 160-4.5 MCG] 1 puff INH BID 07/26/20 [History] Lisdexamfetamine Dimesylate [Vyvanse] 40 mg PO DAILY 07/26/20 [History] Metoclopramide HCl [Reglan] 10 mg PO Q6H PRN #20 tablet 07/26/20 [Rx] Montelukast [Singulair] 10 mg PO DAILY 07/26/20 [History] Tiotropium [Spiriva HandiHaler] 1 dose INH DAILY 07/26/20 [History] busPIRone [Buspar] 30 mg PO DAILY 07/26/20 [History] hydrOXYzine HCL [hydrOXYzine] 2 tab PO DAILY PRN 07/26/20 [History] lisinopriL [Lisinopril] 20 mg PO DAILY 07/26/20 [History] traZODone HCl [Trazodone HCl] 200 mg PO BEDTIME 07/26/20 [History] Magnesium Chloride [Mag Delay] 64 mg PO BID 7 Days #14 tablet. 07/27/20 [Rx] Ondansetron [Ondansetron ODT] 4 mg PO Q6H PRN #10 tab.rapdis 07/27/20 [Rx] Promethazine [Phenadoz] 12.5 mg RECTAL Q6H PRN #10 supp 07/28/20 [Rx] Past Medical History - Past Health History Medical/Surgical History: Denies Medical/Surgical History HEENT History: Reports: None Cardiovascular History: Reports: None Respiratory History: Reports: Asthma Gastrointestinal History: Reports: GERD, Hiatal Hernia Genitourinary History: Reports: None [employer] History: Reports: None Musculoskeletal History: Reports: Back Pain, Chronic Neurological History: Reports: Seizure Psychiatric History: Reports: Anxiety, Bipolar, Depression, Mood Swings, Schizophrenia Other Psychiatric History: psych illness per pt Endocrine/Metabolic History: Reports: None Hematologic History: Reports: None Immunologic History: Reports: None Oncologic (Cancer) History: Reports: None Dermatologic History: Reports: None - Infectious Disease History Infectious Disease History: Reports: None - Past Surgical History Head Surgeries/Procedures: Reports: None HEENT Surgical History: Reports: None Cardiovascular Surgical History: Reports: None Respiratory Surgical History: Reports: None GI Surgical History: Reports: Cholecystectomy, Other (See Below) Other GI Surgeries/Procedures: STomach biopsy Female Surgical History: Reports: None Endocrine Surgical History: Reports: None Neurological Surgical History: Reports: None Musculoskeletal Surgical History: Reports: Other (See Below) Other Musculoskeletal Surgeries/Procedures:: 2 back surgeries Oncologic Surgical History: Reports: None Dermatological Surgical History: Reports: None Social & Family History - Family History Family Medical History: Noncontributory Psychiatric: Reports: Depression - Tobacco Use Smoking Status *Q: Current Every Day Smoker Years of Tobacco use: 24 Packs/Tins Daily: 0.5 - Caffeine Use Caffeine Use: Reports: None - Recreational Drug Use Recreational Drug Use: No ED ROS GENERAL - Review of Systems Review Of Systems: See Below ED EXAM, GI/ABD - Physical Exam Exam: See Below EKG INTERPRETATION EKG Interpretation Comments: 12-Lead ECG Interpretation Acquired: 9:16 AM Rhythm: Sinus bradycardia Rate: 56 bpm [place]: Normal Intervals: Normal Ectopy: None Ischemic Changes: None apparent RV Strain: No obvious RV strain pattern. ST Segments/T-Waves: No notable changes Interpretation: U waves present suggesting hypokalemia Course - Vital Signs Text/Narrative:: 35-year-old female with repeated nausea, vomiting, and heartburn sensation. Patient hemodynamically stable, afebrile, well-appearing, looks nontoxic. Differential diagnosis includes but is not limited to: Viral gastroenteritis, gastritis, pancreatitis, peptic ulcer disease, hiatal hernia, GERD, electrolyte disturbance, volume depletion, less likely sepsis or ileus or bowel obstruction, less likely acute hepatitis. Hemodynamically stable, abdomen soft and nontender, nondistended. Low suspicion for an intra-abdominal surgical emergency given lack of pain and lack of tenderness. IV access established, labs sent. Ordering IV metoclopramide and GI cocktail along with 1 L of lactated Ringer's, will reassess. Labs show mild leukocytosis, mild thrombocytosis. Normal lactate. Chemistry panel shows hypokalemia with a potassium of 2.8. AST and ALT are mildly elevated. Lipase is within normal limits. Abdomen is soft and nontender. Treated with IV metoclopramide and a GI cocktail. Initially responded well to these medications. Noted to be hypokalemic and was given IV magnesium sulfate and p.o. potassium. When given potassium, she vomited again and was unable to take it. IV potassium was ordered instead. Also given additional IV Zofran. Twelve-lead EKG shows sinus bradycardia with U waves. Given recurrent vomiting with hypokalemia, will favor admission to observation status. I spoke with the hospitalist Dr. Jr Vega who agrees to admit. Last Recorded V/S: Last Vital Signs Temp 36.1 C 07/28/20 07:10 Pulse 78 07/28/20 09:00 Resp 18 07/28/20 09:00 BP 136/76 07/28/20 09:00 Pulse Ox 97 07/28/20 09:00 - Orders/Labs/Meds Orders: Active Orders 24 hr Category Date Time Status Admission Status [Patient Status] [ADT] Stat ADT 07/28/20 09:02 Active EKG 12 Lead [EKG Documentation Completion] [RC] STAT Care 07/28/20 08:25 Active Pulse Oximetry [RC] ASDIRECTED Care 07/28/20 07:02 Active CORONAVIRUS COVID-19 PCR PHL Stat Lab 07/28/20 09:01 Ordered Lactated Ringers [Ringers, Lactated] 1,000 ml Med 07/28/20 09:15 Active IV ASDIRECTED Potassium Chloride Riders [KCL 20 MEQ in Water 50 ML] Med 07/28/20 09:01 Active 20 meq Premix Bag 1 bag IV ONETIME Sodium Chloride 0.9% [Saline Flush] Med 07/28/20 07:02 Active 10 ml FLUSH ASDIRECTED PRN Sodium Chloride 0.9% [Saline Flush] Med 07/28/20 07:02 Active 2.5 ml FLUSH ASDIRECTED PRN Saline Lock Insert [OM.PC] Stat Oth 07/28/20 07:02 Ordered Medication Orders Potassium Chloride 20 meq/ (Premix) 50 mls @ 25 mls/hr IV ONETIME ONE Stop: 07/28/20 11:00 Lactated Ringer's (Ringers, Lactated) 1,000 mls @ 125 mls/hr IV ASDIRECTED MANPREET Sodium Chloride (Saline Flush) 2.5 ml FLUSH ASDIRECTED PRN PRN Reason: Keep Vein Open Last Admin: 07/28/20 08:53 Dose: 2.5 ml Documented by: [id number] Sodium Chloride (Saline Flush) 10 ml FLUSH ASDIRECTED PRN PRN Reason: Keep Vein Open Last Admin: 07/28/20 08:53 Dose: 10 ml Documented by: [email or web address] Labs: Laboratory Tests 07/28/20 07/28/20 07/28/20 Range/Units 07:17 07:17 07:17 WBC 14.31 H (4.0-11.0) K/uL RBC 5.25 (4.30-5.90) M/uL Hgb 16.0 (12.0-16.0) g/dL Hct 44.8 (36.0-46.0) % MCV 85.3 (80.0-98.0) fL MCH 30.5 (27.0-32.0) pg MCHC 35.7 (31.0-37.0) g/dL RDW Std Deviation 42.0 (28.0-62.0) fl RDW Coeff of Mara 14 (11.0-15.0) % Plt Count 429 H (150-400) K/uL MPV 9.50 (7.40-12.00) fL Neut % (Auto) 83.9 H (48.0-80.0) % Lymph % (Auto) 10.3 L (16.0-40.0) % [place] % (Auto) 5.5 (0.0-15.0) % Eos % (Auto) 0.2 (0.0-7.0) % Baso % (Auto) 0.1 (0.0-1.5) % Neut # (Auto) 12.0 H (1.4-5.7) K/uL Lymph # (Auto) 1.5 (0.6-2.4) K/uL [place] # (Auto) 0.8 (0.0-0.8) K/uL Eos # (Auto) 0.0 (0.0-0.7) K/uL Baso # (Auto) 0.0 (0.0-0.1) K/uL Nucleated RBC % 0.0 /100WBC Nucleated RBCs # 0 K/uL Lactate 1.4 (0.20-2.00) mmol/L Sodium 139 (136-145) mmol/L Potassium 2.8 L (3.5-5.1) mmol/L Chloride 99 (98-107) mmol/L Carbon Dioxide 24.4 (21.0-32.0) mmol/L BUN 11 (7.0-18.0) mg/dL Creatinine 1.0 (0.6-1.0) mg/dL Est Cr Clr Drug Dosing 80.72 mL/min Estimated GFR (MDRD) > 60.0 ml/min Glucose 152 H (74-106) mg/dL Calcium 9.4 (8.5-10.1) mg/dL Total Bilirubin 0.5 (0.2-1.0) mg/dL AST 38 H (15-37) IU/L ALT 99 H (14-63) IU/L Alkaline Phosphatase 104 (46-116) U/L Total Protein 8.7 H (6.4-8.2) g/dL Albumin 4.6 (3.4-5.0) g/dL Globulin 4.1 H (2.6-4.0) g/dL Albumin/Globulin Ratio 1.1 (0.9-1.6) Lipase 87 (73-393) U/L Meds: Medications Generic Name Dose Route Start Last Admin Trade Name Freq PRN Reason Stop Dose Admin Potassium Chloride 20 meq/ 50 mls @ 25 mls/hr 07/28/20 09:01 Premix IV 07/28/20 11:00 ONETIME ONE Lactated Ringer's 1,000 mls @ 125 mls/hr 07/28/20 09:15 Ringers, Lactated IV ASDIRECTED MANPREET Sodium Chloride 2.5 ml 07/28/20 07:02 07/28/20 08:53 Saline Flush FLUSH 2.5 ml ASDIRECTED PRN Administration Keep Vein Open Sodium Chloride 10 ml 07/28/20 07:02 07/28/20 08:53 Saline Flush FLUSH 10 ml ASDIRECTED PRN Administration Keep Vein Open Discontinued Medications Generic Name Dose Route Start Last Admin Trade Name Freq PRN Reason Stop Dose Admin Al Hydroxide/Mg Hydroxide 15 0 ml 07/28/20 07:23 07/28/20 07:37 ml/ Lidocaine HCl 5 ml PO 07/28/20 07:24 1 each ONETIME ONE Administration Lactated Ringer's 1,000 mls @ 999 mls/hr 07/28/20 07:02 07/28/20 07:24 Ringers, Lactated IV 07/28/20 08:02 999 mls/hr .BOLUS ONE Administration Magnesium Sulfate 2 gm/ Premix 50 mls @ 50 mls/hr 07/28/20 08:16 07/28/20 08:52 IV 07/28/20 09:15 50 mls/hr ONETIME ONE Administration Metoclopramide HCl 10 mg 07/28/20 07:02 07/28/20 07:25 Reglan IVPUSH 07/28/20 07:03 10 mg ONETIME ONE Administration Ondansetron HCl 4 mg 07/28/20 09:01 Zofran IVPUSH 07/28/20 09:02 ONETIME ONE Potassium Chloride 60 meq 07/28/20 08:16 07/28/20 08:52 Potassium Chloride PO 07/28/20 08:17 60 meq ONETIME ONE Administration Departure - Departure Time of Disposition: 09:25 Disposition: Refer to Observation Condition: Good Clinical Impression: Nausea and vomiting in adult patient, Hypokalemia - Discharge Information *PRESCRIPTION DRUG MONITORING PROGRAM REVIEWED*: Not Applicable *COPY OF PRESCRIPTION DRUG MONITORING REPORT IN PATIENT ZEFERINO: Not Applicable Sepsis Event Note (ED) - Evaluation Sepsis Screening Result: No Definite Risk - Focused Exam Vital Signs: Vital Signs Temp Pulse Resp BP Pulse Ox 07/28/20 09:00 78 18 136/76 97 07/28/20 07:10 36.1 C 73 17 147/70 H 98 - My Orders Last 24 Hours: My Active Orders 07/28/20 07:02 Pulse Oximetry [RC] ASDIRECTED Sodium Chloride 0.9% [Saline Flush] 10 ml FLUSH ASDIRECTED PRN Sodium Chloride 0.9% [Saline Flush] 2.5 ml FLUSH ASDIRECTED PRN Saline Lock Insert [OM.PC] Stat 07/28/20 08:25 EKG 12 Lead [EKG Documentation Completion] [RC] STAT 07/28/20 09:01 CORONAVIRUS COVID-19 PCR PHL Stat Potassium Chloride Riders [KCL 20 MEQ in Water 50 ML] 20 meq Premix Bag 1 bag IV ONETIME 07/28/20 09:02 Admission Status [Patient Status] [ADT] Stat 07/28/20 09:15 Lactated Ringers [Ringers, Lactated] 1,000 ml IV ASDIRECTED - Assessment/Plan Last 24 Hours: My Active Orders 07/28/20 07:02 Pulse Oximetry [RC] ASDIRECTED Sodium Chloride 0.9% [Saline Flush] 10 ml FLUSH ASDIRECTED PRN Sodium Chloride 0.9% [Saline Flush] 2.5 ml FLUSH ASDIRECTED PRN Saline Lock Insert [OM.PC] Stat 07/28/20 08:25 EKG 12 Lead [EKG Documentation Completion] [RC] STAT 07/28/20 09:01 CORONAVIRUS COVID-19 PCR PHL Stat Potassium Chloride Riders [KCL 20 MEQ in Water 50 ML] 20 meq Premix Bag 1 bag IV ONETIME 07/28/20 09:02 Admission Status [Patient Status] [ADT] Stat 07/28/20 09:15 Lactated Ringers [Ringers, Lactated] 1,000 ml IV ASDIRECTED
[2020-07-28 08:09] LABS: BLOOD UREA NITROGEN,BUN 11 mg/dL (7.0-18.0); CARBON DIOXIDE,CO2 24.4 mmol/L (21.0-32.0); CHLORIDE,CL 99 mmol/L (98-107); GLUCOSE RANDOM 152 mg/dL (74-106); LIPASE 87 U/L (73-393); POTASSIUM,K 2.8 mmol/L (3.5-5.1); SODIUM,NA 139 mmol/L (136-145)
[2020-07-28] MEDS ORDERED: Potassium Chloride 10% 20 MEQ/15 ML Soln 30 ML UD Cup PO ONE (08:16)
[2020-07-28] MEDS ORDERED: Magnesium Sulfate/Water 2 GM in Premix Bag 1 BAG IV ONE (08:16)
[2020-07-28] MEDS ORDERED: Potassium Chloride Riders 20 MEQ in Premix Bag 1 BAG IV ONE ×2 (09:01→14:00)
[2020-07-28] MEDS ORDERED: Ondansetron 4 MG/2 ML SDV IVPUSH ONE (09:01)
[2020-07-28] MEDS: Lactated Ringers 1,000 ML IV SCH ×6 (09:27→20:42)
--- NOTE | 2020-07-28 12:33 | PCM.HP.2 ---
H&P History of Present Illness - General Date of Service: 07/28/20 Admit Problem/Dx: Admission Diagnosis/Problem Admission Diagnosis/Problem Hypokalemia Source of Information: Patient History Limitations: Reports: No Limitations - History of Present Illness Initial Comments - Free Text/Narative: This 35 year old female with pmh of HTN, Asthma, Bipolar, and schizophrenia pre sented to the ED with concerns N/V and burning in her throat. She has been to the ED multiple times for this in the past couple days. Today she is noted to have hypokalemia. She reports 5 days ago she had a spicy burrito which set off her GERD, She was not been able to eat much without vomiting and having significant heart burn. She does have a history of a hiatal hernia, reports this type of thing happens about once a year. She reports the GI cocktail in the ED this time really helped and is feeling improved. No fevers or chills no overt abdominal pain today. Reports she is urinating, tea colored urine. No urinary concerns. No diarrhea or constipation. No neurological deficits. She reports she has not had her psychiatric medications in 5 days and she is scared and wants to make sure she can have those soon. In the ED labwork psitive for hypokalemia. She was give PO, but threw this up and then have 20 meq IV. She will be admitted for monitoring due to hypokalemia and intractable nausea and vomiting. Throat Pain Score (Numeric/FACES): 7 - Related Data Allergies/Adverse Reactions: Allergies Allergy/AdvReac Type Severity Reaction Status Date / Time Penicillins Allergy Anaphylactic Verified 07/28/20 11:48 Shock ziprasidone [From Geodon] Allergy Hives Verified 07/28/20 11:48 Home Medications: Home Meds Pantoprazole [ProTONIX] 40 mg PO DAILY 07/20/18 [History] QUEtiapine [SEROquel] 300 mg PO DAILY 07/20/18 [History] Topiramate 100 mg PO BID 07/20/18 [History] Gabapentin [Neurontin] 100 mg PO TID 09/08/18 [History] Albuterol [Proair HFA] 1 - 2 puff INH Q4HR PRN 07/26/20 [History] Budesonide/Formoterol [Symbicort 160-4.5 MCG] 1 puff INH BID 07/26/20 [History] Lisdexamfetamine Dimesylate [Vyvanse] 40 mg PO DAILY 07/26/20 [History] Metoclopramide HCl [Reglan] 10 mg PO Q6H PRN #20 tablet 07/26/20 [Rx] Montelukast [Singulair] 10 mg PO DAILY 07/26/20 [History] Tiotropium [Spiriva HandiHaler] 1 dose INH DAILY 07/26/20 [History] busPIRone [Buspar] 30 mg PO DAILY 07/26/20 [History] hydrOXYzine HCL [hydrOXYzine] 2 tab PO DAILY PRN 07/26/20 [History] lisinopriL [Lisinopril] 20 mg PO DAILY 07/26/20 [History] traZODone HCl [Trazodone HCl] 200 mg PO BEDTIME 07/26/20 [History] Ondansetron [Ondansetron ODT] 4 mg PO Q6H PRN #10 tab.rapdis 07/27/20 [Rx] Past Medical History - Past Health History Medical/Surgical History: Denies Medical/Surgical History HEENT History: Reports: Impaired Vision Other HEENT History: wears glasses Cardiovascular History: Reports: None Respiratory History: Reports: Asthma Gastrointestinal History: Reports: GERD, Hiatal Hernia Genitourinary History: Reports: None [employer]IE[employer] History: Reports: None, Musculoskeletal History: Reports: Back Pain, Chronic Neurological History: Reports: Seizure Psychiatric History: Reports: Anxiety, Bipolar, Depression, Mood Swings, Schizophrenia Other Psychiatric History: psych illness per pt Endocrine/Metabolic History: Reports: None Hematologic History: Reports: None Immunologic History: Reports: None Oncologic (Cancer) History: Reports: None Dermatologic History: Reports: None - Infectious Disease History Infectious Disease History: Reports: None - Past Surgical History Head Surgeries/Procedures: Reports: None HEENT Surgical History: Reports: None Cardiovascular Surgical History: Reports: None Respiratory Surgical History: Reports: None GI Surgical History: Reports: Cholecystectomy, Other (See Below) Other GI Surgeries/Procedures: STomach biopsy Female Surgical History: Reports: None Endocrine Surgical History: Reports: None Neurological Surgical History: Reports: None Musculoskeletal Surgical History: Reports: Other (See Below) Other Musculoskeletal Surgeries/Procedures:: 2 back surgeries Oncologic Surgical History: Reports: None Dermatological Surgical History: Reports: None Social & Family History - Family History Family Medical History: Noncontributory HEENT: Reports: Glaucoma Cardiac: Reports: MD Respiratory: Reports: Asthma, COPD Musculoskeletal: Reports: Arthritis Neurological: Reports: Dementia Psychiatric: Reports: Anxiety, Bipolar, Depression, Mood Swings, Psychosis, PTSD, Schizophrenia Endocrine/Metabolic: Reports: Diabetes, type II Oncologic: Reports: Bone, Breast, Prostate - Tobacco Use Smoking Status *Q: Current Every Day Smoker Years of Tobacco use: 24 Packs/Tins Daily: 1 Used Tobacco, but Quit: No Second Hand Smoke Exposure: Yes - Caffeine Use Caffeine Use: Reports: Coffee, Energy Drinks, Soda, Tea - Recreational Drug Use Recreational Drug Use: Yes Drug Use in Last 12 Months: Yes Recreational Drug Type: Reports: Marijuana/Hashish Recreational Drug Use Frequency: Weekly H&P Review of Systems - Review of Systems: Review Of Systems: See Below General: Reports: No Symptoms. Denies: Fever, Chills, Malaise HEENT: Reports: No Symptoms. Denies: Headaches, Sinus Congestion, Vertigo Pulmonary: Reports: No Symptoms. Denies: Shortness of Breath Cardiovascular: Reports: No Symptoms. Denies: Chest Pain Gastrointestinal: Reports: Nausea (much improved). Denies: Abdominal Pain, Black Stool, Bloody Stool, Hematemesis Genitourinary: Reports: No Symptoms. Denies: Dysuria, Frequency, Burning Skin: Reports: No Symptoms Psychiatric: Reports: No Symptoms. Denies: Mood Lability, Anxiety, Suicidal Ideation, Homicidal Ideation, Hallucinations (Auditory) Neurological: Reports: No Symptoms Hematologic/Lymphatic: Reports: No Symptoms Immunologic: Reports: No Symptoms Exam - Exam Exam: See Below - Vital Signs Vital Signs: Last Vital Signs Temp 96.9 F 07/28/20 07:10 Pulse 64 07/28/20 10:07 Resp 17 07/28/20 10:07 BP 134/88 07/28/20 10:07 Pulse Ox 98 07/28/20 10:07 Weight: 108.1 kg - Exam General: Alert, Oriented, Cooperative Neck: Supple, Trachea Midline Lungs: Clear to Auscultation, Normal Respiratory Effort Cardiovascular: Regular Rate, Regular Rhythm, Normal S1, Normal S2 GI/Abdominal Exam: Normal Bowel Sounds, Soft, Non-Tender, No Mass Extremities: Normal Inspection, Normal Range of Motion, Non-Tender, No Pedal Edema Neuro Extensive - Mental Status: Alert, Oriented x3 Neuro Extensive - Motor, Sensory, Reflexes: CN II-XII Intact, Normal Gait Psychiatric: Alert, Normal Affect, Normal Mood - Patient Data Lab Results Last 24 hrs: Laboratory Results - last 24 hr 07/28/20 07/28/20 07/28/20 Range/Units 07:17 07:17 07:17 WBC 14.31 H (4.0-11.0) K/uL RBC 5.25 (4.30-5.90) M/uL Hgb 16.0 (12.0-16.0) g/dL Hct 44.8 (36.0-46.0) % MCV 85.3 (80.0-98.0) fL MCH 30.5 (27.0-32.0) pg MCHC 35.7 (31.0-37.0) g/dL RDW Std Deviation 42.0 (28.0-62.0) fl RDW Coeff of Mara 14 (11.0-15.0) % Plt Count 429 H (150-400) K/uL MPV 9.50 (7.40-12.00) fL Neut % (Auto) 83.9 H (48.0-80.0) % Lymph % (Auto) 10.3 L (16.0-40.0) % [place] % (Auto) 5.5 (0.0-15.0) % Eos % (Auto) 0.2 (0.0-7.0) % Baso % (Auto) 0.1 (0.0-1.5) % Neut # (Auto) 12.0 H (1.4-5.7) K/uL Lymph # (Auto) 1.5 (0.6-2.4) K/uL [place] # (Auto) 0.8 (0.0-0.8) K/uL Eos # (Auto) 0.0 (0.0-0.7) K/uL Baso # (Auto) 0.0 (0.0-0.1) K/uL Nucleated RBC % 0.0 /100WBC Nucleated RBCs # 0 K/uL Lactate 1.4 (0.20-2.00) mmol/L Sodium 139 (136-145) mmol/L Potassium 2.8 L (3.5-5.1) mmol/L Chloride 99 (98-107) mmol/L Carbon Dioxide 24.4 (21.0-32.0) mmol/L BUN 11 (7.0-18.0) mg/dL Creatinine 1.0 (0.6-1.0) mg/dL Est Cr Clr Drug Dosing 80.72 mL/min Estimated GFR (MDRD) > 60.0 ml/min Glucose 152 H (74-106) mg/dL Calcium 9.4 (8.5-10.1) mg/dL Total Bilirubin 0.5 (0.2-1.0) mg/dL AST 38 H (15-37) IU/L ALT 99 H (14-63) IU/L Alkaline Phosphatase 104 (46-116) U/L Total Protein 8.7 H (6.4-8.2) g/dL Albumin 4.6 (3.4-5.0) g/dL Globulin 4.1 H (2.6-4.0) g/dL Albumin/Globulin Ratio 1.1 (0.9-1.6) Lipase 87 (73-393) U/L SARS-CoV-2 RNA (IBIS) (NEGATIVE) 07/28/20 Range/Units 09:10 WBC (4.0-11.0) K/uL RBC (4.30-5.90) M/uL Hgb (12.0-16.0) g/dL Hct (36.0-46.0) % MCV (80.0-98.0) fL MCH (27.0-32.0) pg MCHC (31.0-37.0) g/dL RDW Std Deviation (28.0-62.0) fl RDW Coeff of Mara (11.0-15.0) % Plt Count (150-400) K/uL MPV (7.40-12.00) fL Neut % (Auto) (48.0-80.0) % Lymph % (Auto) (16.0-40.0) % [place] % (Auto) (0.0-15.0) % Eos % (Auto) (0.0-7.0) % Baso % (Auto) (0.0-1.5) % Neut # (Auto) (1.4-5.7) K/uL Lymph # (Auto) (0.6-2.4) K/uL Med[place] # (Auto) (0.0-0.8) K/uL Eos # (Auto) (0.0-0.7) K/uL Baso # (Auto) (0.0-0.1) K/uL Nucleated RBC % /100WBC Nucleated RBCs # K/uL Lactate (0.20-2.00) mmol/L Sodium (136-145) mmol/L Potassium (3.5-5.1) mmol/L Chloride (98-107) mmol/L Carbon Dioxide (21.0-32.0) mmol/L BUN (7.0-18.0) mg/dL Creatinine (0.6-1.0) mg/dL Est Cr Clr Drug Dosing mL/min Estimated GFR (MDRD) ml/min Glucose (74-106) mg/dL Calcium (8.5-10.1) mg/dL Total Bilirubin (0.2-1.0) mg/dL AST (15-37) IU/L ALT (14-63) IU/L Alkaline Phosphatase (46-116) U/L Total Protein (6.4-8.2) g/dL Albumin (3.4-5.0) g/dL Globulin (2.6-4.0) g/dL Albumin/Globulin Ratio (0.9-1.6) Lipase (73-393) U/L SARS-CoV-2 RNA (IBIS) NEGATIVE (NEGATIVE) Result Diagrams: 07/28/20 07:17 07/28/20 07:17 Sepsis Event Note - Evaluation Sepsis Screening Result: No Definite Risk - Focused Exam Vital Signs: Vital Signs Temp Pulse Resp BP Pulse Ox 07/28/20 10:07 64 17 134/88 98 07/28/20 09:00 78 18 136/76 97 07/28/20 07:10 96.9 F 73 17 147/70 H 98 - Problem List (1) Schizophrenia SNOMED Code(s): 46049543 ICD Code: F20.9 - SCHIZOPHRENIA, UNSPECIFIED Status: Acute Current Visit: Yes (2) Bipolar 1 disorder SNOMED Code(s): 550870792 ICD Code: F31.9 - BIPOLAR DISORDER, UNSPECIFIED Status: Acute Current Visit: Yes (3) HTN (hypertension) SNOMED Code(s): 82235360 ICD Code: I10 - ESSENTIAL (PRIMARY) HYPERTENSION Status: Acute Current Visit: Yes (4) Hypokalemia SNOMED Code(s): 03751416 ICD Code: E87.6 - HYPOKALEMIA Status: Acute Current Visit: Yes (5) Nausea and vomiting in adult SNOMED Code(s): 16937328 ICD Code: R11.2 - NAUSEA WITH VOMITING, UNSPECIFIED Status: Acute Current Visit: Yes (6) Hiatal hernia SNOMED Code(s): 91070257 ICD Code: K44.9 - DIAPHRAGMATIC HERNIA WITHOUT OBSTRUCTION OR GANGRENE Status: Acute Current Visit: No Problem List Initiated/Reviewed/Updated: Yes Orders Last 24hrs: Active Orders 24 hr Category Date Time Status Admission Status [Patient Status] [ADT] Stat ADT 07/28/20 09:02 Active EKG 12 Lead [EKG Documentation Completion] [RC] STAT Care 07/28/20 08:25 Active Pulse Oximetry [RC] ASDIRECTED Care 07/28/20 07:02 Active Telemetry Monitoring [Cardiac Monitoring] [RC] Q8H Care 07/28/20 09:19 Active Lactated Ringers [Ringers, Lactated] 1,000 ml Med 07/28/20 09:15 Active IV ASDIRECTED Sodium Chloride 0.9% [Saline Flush] Med 07/28/20 07:02 Active 10 ml FLUSH ASDIRECTED PRN Sodium Chloride 0.9% [Saline Flush] Med 07/28/20 07:02 Active 2.5 ml FLUSH ASDIRECTED PRN Saline Lock Insert [OM.PC] Stat Oth 07/28/20 07:02 Ordered Medication Orders Lactated Ringer's (Ringers, Lactated) 1,000 mls @ 125 mls/hr IV ASDIRECTED MANPREET Last Admin: 07/28/20 09:27 Dose: 125 mls/hr Documented by: [id number] Sodium Chloride (Saline Flush) 2.5 ml FLUSH ASDIRECTED PRN PRN Reason: Keep Vein Open Last Admin: 07/28/20 08:53 Dose: 2.5 ml Documented by: [id number] Sodium Chloride (Saline Flush) 10 ml FLUSH ASDIRECTED PRN PRN Reason: Keep Vein Open Last Admin: 07/28/20 08:53 Dose: 10 ml Documented by: [id number] Assessment/Plan Comment:: This 35 year old female admitted with intractable N/V and hypokalemia 1. Hypokalemia - Will give another 20 meq IV today. - Recheck Potassium this evening - Recheck labs in am - Monitor on telemetry 2. Intractble N/V - Likely related to hiatal hernia - GI cocktail PRN - IV protonix - CL diet for now 3. HTN/ Schizophrenia./Bipolar/Asthma - Continue home medications Dispo: 1 day
[2020-07-28] MEDS ORDERED: Pantoprazole 40 MG Vial IV SCH (12:45)
[2020-07-28] MEDS ORDERED: Metoclopramide 10 MG/2 ML SDV IVPUSH PRN (13:06)
[2020-07-28] MEDS: Pantoprazole 40 MG in Sodium Chloride 0.9% 10 ML IV SCH (13:07)
[2020-07-28] MEDS ORDERED: Albuterol HFA 18 Gm Inhaler INH PRN (13:34)
[2020-07-28] MEDS ORDERED: hydrOXYzine HCl 25 MG Tab PO PRN (13:34)
[2020-07-28] MEDS ORDERED: Alum Hydrox/Mag Hydrox/Simeth 15 ML, Lidocaine 2% 5 ML PO PRN ×2 (13:34)
[2020-07-28] MEDS: Ondansetron 4 MG/2 ML SDV IVPUSH PRN ×2 (13:54→20:42)
--- NOTE | 2020-07-28 14:57 | CR ---
Abdomen: Supine view of the abdomen was obtained as well as upright study. Comparison: No previous study. Surgical clips are seen from prior cholecystectomy. Previous lumbar spine surgery is noted. Bowel gas pattern is normal. Calcifications are seen within the pelvis which are with compatible phleboliths. No free air is appreciated. Impression: 1. Findings as noted above. 2. Nothing acute is appreciated. Diagnostic code #2 This report was dictated in MDT
[2020-07-28] MEDS ORDERED: Acetaminophen 325 MG Tab PO PRN (16:06)
[2020-07-28] MEDS: Budesonide/Formoterol 160-4.5 MCG/Puff 6 GM Inhaler INH SCH (20:45)
[2020-07-28] MEDS ORDERED: Topiramate 100 MG Tab PO SCH (21:00)
[2020-07-28] MEDS ORDERED: Montelukast 10 MG Tab PO SCH (21:00)
[2020-07-28] MEDS ORDERED: QUEtiapine 100 MG Tab PO SCH (21:00)
[2020-07-28] MEDS ORDERED: traZODone 50 MG Tab PO SCH (21:00)
[2020-07-28] MEDS ORDERED: Sodium Chloride 0.9% with KCl 1,000 ML IV SCH (21:15)
[2020-07-28] MEDS ORDERED: Gabapentin 800 MG Tab PO SCH (22:00)
[2020-07-28] MEDS: Gabapentin 100 MG Cap PO SCH (23:16)
[2020-07-29] MEDS: Gabapentin 100 MG Cap PO SCH (06:45)
[2020-07-29 07:23] LABS: BLOOD UREA NITROGEN,BUN 6 mg/dL (7.0-18.0); CARBON DIOXIDE,CO2 21.1 mmol/L (21.0-32.0); CHLORIDE,CL 105 mmol/L (98-107); GLUCOSE RANDOM 83 mg/dL (74-106); SODIUM,NA 140 mmol/L (136-145)
[2020-07-29] MEDS: Potassium Chloride 20 MEQ Tab.ER PO SCH ×2 (08:52→12:11)
[2020-07-29] MEDS: Budesonide/Formoterol 160-4.5 MCG/Puff 6 GM Inhaler INH SCH (08:57)
[2020-07-29] MEDS ORDERED: busPIRone 5 MG Tab PO SCH (09:00)
[2020-07-29] MEDS ORDERED: Lisinopril 10 MG Tab PO SCH (09:00)
[2020-07-29] MEDS ORDERED: Tiotropium Inhaler 18 MCG Inhalation Powder Cap Kit of 5 INH SCH (09:00)
[2020-07-29] MEDS ORDERED: Lisdexamfetamine Dimesylate [Vyvanse] 40 MG PO SCH (09:00)
[2020-07-29 10:33] LABS: BILIRUBIN INDIRECT 0.4
--- NOTE | 2020-07-29 10:40 | PCM.DCSUM1 ---
Discharge Summary - Hospital Course Brief History: This 35 year old female with pmh of HTN, Asthma, Bipolar, and schizophrenia presented to the ED with concerns N/V and burning in her throat. She has been to the ED multiple times for this in the past couple days. Today she is noted to have hypokalemia. She reports 5 days ago she had a spicy burrito which set off her GERD, She was not been able to eat much without vomiting and having significant heart burn. She does have a history of a hiatal hernia, reports this type of thing happens about once a year. She reports the GI cocktail in the ED this time really helped and is feeling improved. No fevers or chills no overt abdominal pain today. Reports she is urinating, tea colored urine. No urinary concerns. No diarrhea or constipation. No neurological deficits. She reports she has not had her psychiatric medications in 5 days and she is scared and wants to make sure she can have those soon. In the ED labwork psitive for hypokalemia. She was give PO, but threw this up and then have 20 meq IV. She will be admitted for monitoring due to hypokalemia and intractable nausea and vomiting. Diagnosis: Stroke: No - Discharge Data Discharge Date: 07/29/20 Discharge Disposition: Home, Self-Care 01 Condition: Good - Referral to Home Health Primary Care Physician: Becky Michael MD - Discharge Diagnosis/Problem(s) (1) Schizophrenia SNOMED Code(s): 56455310 ICD Code: F20.9 - SCHIZOPHRENIA, UNSPECIFIED Status: Acute (2) Bipolar 1 disorder SNOMED Code(s): 063662452 ICD Code: F31.9 - BIPOLAR DISORDER, UNSPECIFIED Status: Acute (3) HTN (hypertension) SNOMED Code(s): 54439639 ICD Code: I10 - ESSENTIAL (PRIMARY) HYPERTENSION Status: Acute (4) Hypokalemia SNOMED Code(s): 66171416 ICD Code: E87.6 - HYPOKALEMIA Status: Acute (5) Nausea and vomiting in adult SNOMED Code(s): 04662912 ICD Code: R11.2 - NAUSEA WITH VOMITING, UNSPECIFIED Status: Acute (6) Hiatal hernia SNOMED Code(s): 71688570 ICD Code: K44.9 - DIAPHRAGMATIC HERNIA WITHOUT OBSTRUCTION OR GANGRENE Status: Acute - Patient Summary/Data Hospital Course: Admitting Diagnoses: Intractable N/V GERD Hypokalemia Discharge Diagnoses:: Intractable N/V GERD Hypokalemia Kristy was admitted secondary to intractable N/V and severe GERD symptoms after eating a burrito 5 days. She had subsequent N/V and had been in the ED multiple times, yesterday hypokalemia was noted. She was admitted treated with GI cocktail and Protonix along with Potassium supplementation. Today She is requesting DC home. leukocytosis 15,000, no signs of infection and no fever. Potassium is 3.0, she was able to keep down 40 meq Potassium along with breakfast. She will be discharged home today with follow up with PCP and labwork to evaluate potassium and WBC. She will be given 40 meq potassium x 3 days. Counseled on eating small frequent no spicy foods with hiatal hernia. Increase Protonix to BID x 14 days then back to daily. Return to ED or clinic if concerns should arise. - Patient Instructions Diet: GI Soft/Low Residue/Low Fiber Activity: As Tolerated, No Strenuous Activities Showering/Bathing: May Shower Notify Provider of: Fever, Increased Pain, Swelling and Redness, Drainage, Nausea and/or Vomiting - Discharge Plan *PRESCRIPTION DRUG MONITORING PROGRAM REVIEWED*: Not Applicable *COPY OF PRESCRIPTION DRUG MONITORING REPORT IN PATIENT ZEFERINO: Not Applicable Prescriptions/Med Rec: Potassium Chloride [Klor-Con M20] 40 meq PO DAILY #6 tab.er Pantoprazole [ProTONIX] 40 mg PO BID #28 Home Medications: Home Meds QUEtiapine [SEROquel] 300 mg PO DAILY 07/20/18 [History] Topiramate 100 mg PO BID 07/20/18 [History] Gabapentin [Neurontin] 100 mg PO TID 09/08/18 [History] Albuterol [Proair HFA] 1 - 2 puff INH Q4HR PRN 07/26/20 [History] Budesonide/Formoterol [Symbicort 160-4.5 MCG] 1 puff INH BID 07/26/20 [History] Lisdexamfetamine Dimesylate [Vyvanse] 40 mg PO DAILY 07/26/20 [History] Metoclopramide HCl [Reglan] 10 mg PO Q6H PRN #20 tablet 07/26/20 [Rx] Montelukast [Singulair] 10 mg PO DAILY 07/26/20 [History] Tiotropium [Spiriva HandiHaler] 1 dose INH DAILY 07/26/20 [History] busPIRone [Buspar] 30 mg PO DAILY 07/26/20 [History] hydrOXYzine HCL [hydrOXYzine] 2 tab PO DAILY PRN 07/26/20 [History] lisinopriL [Lisinopril] 20 mg PO DAILY 07/26/20 [History] traZODone HCl [Trazodone HCl] 200 mg PO BEDTIME 07/26/20 [History] Ondansetron [Ondansetron ODT] 4 mg PO Q6H PRN #10 tab.rapdis 07/27/20 [Rx] Pantoprazole [ProTONIX] 40 mg PO BID #28 07/29/20 [Rx] Potassium Chloride [Klor-Con M20] 40 meq PO DAILY #6 tab.er 07/29/20 [Rx] Oxygen Therapy Mode: Room Air Patient Handouts: Potassium chloride tablets, extended-release tablets or capsules, Hypokalemia, Nausea and Vomiting, Adult, Pantoprazole tablets Referrals: Becky Michael MD [Primary Care Provider] - 08/03/20 11:30 am () - Discharge Summary/Plan Comment DC Time >30 min.: No - Patient Data Vitals - Most Recent: Last Vital Signs Temp 97.8 F 07/29/20 08:00 Pulse 72 07/29/20 08:00 Resp 16 07/29/20 08:00 BP 114/62 07/29/20 08:52 Pulse Ox 96 07/29/20 08:00 Weight - Most Recent: 108.1 kg I&O - Last 24 hours: Intake & Output 07/28/20 07/29/20 07/29/20 22:59 06:59 14:59 Intake Total 120 2577 Output Total 650 800 Balance -530 4917 Lab Results - Last 24 hrs: Laboratory Results - last 24 hr 07/28/20 07/28/20 07/29/20 Range/Units 17:59 18:53 05:38 WBC 15.31 H (4.0-11.0) K/uL RBC 4.56 (4.30-5.90) M/uL Hgb 13.7 (12.0-16.0) g/dL Hct 39.8 (36.0-46.0) % MCV 87.3 (80.0-98.0) fL MCH 30.0 (27.0-32.0) pg MCHC 34.4 (31.0-37.0) g/dL RDW Std Deviation 44.8 (28.0-62.0) fl RDW Coeff of Mara 14 (11.0-15.0) % Plt Count 319 (150-400) K/uL MPV 9.60 (7.40-12.00) fL Neut % (Auto) 77.3 (48.0-80.0) % Lymph % (Auto) 15.2 L (16.0-40.0) % [place] % (Auto) 5.8 (0.0-15.0) % Eos % (Auto) 1.5 (0.0-7.0) % Baso % (Auto) 0.2 (0.0-1.5) % Neut # (Auto) 11.8 H (1.4-5.7) K/uL Lymph # (Auto) 2.3 (0.6-2.4) K/uL [place] # (Auto) 0.9 H (0.0-0.8) K/uL Eos # (Auto) 0.2 (0.0-0.7) K/uL Baso # (Auto) 0.0 (0.0-0.1) K/uL Nucleated RBC % 0.0 /100WBC Nucleated RBCs # 0 K/uL Sodium (136-145) mmol/L Potassium 3.1 L (3.5-5.1) mmol/L Chloride (98-107) mmol/L Carbon Dioxide (21.0-32.0) mmol/L BUN (7.0-18.0) mg/dL Creatinine (0.6-1.0) mg/dL Est Cr Clr Drug Dosing mL/min Estimated GFR (MDRD) ml/min Glucose (74-106) mg/dL Calcium (8.5-10.1) mg/dL Magnesium (1.8-2.4) mg/dL Total Bilirubin (0.2-1.0) mg/dL Direct Bilirubin (0.0-0.5) mg/dL Indirect Bilirubin AST (15-37) IU/L ALT (14-63) IU/L Alkaline Phosphatase (46-116) U/L Total Protein (6.4-8.2) g/dL Albumin (3.4-5.0) g/dL Globulin (2.6-4.0) g/dL Albumin/Globulin Ratio (0.9-1.6) Urine Color YELLOW Urine Appearance SLT CLOUDY Urine pH 8.0 (5.0-8.0) Ur Specific [place] 1.015 (1.001-1.035) Urine Protein NEGATIVE (NEGATIVE) mg/dL Urine Glucose (UA) NEGATIVE (NEGATIVE) mg/dL Urine Ketones >=80 (NEGATIVE) mg/dL Urine Occult Blood SMALL H (NEGATIVE) Urine Nitrite NEGATIVE (NEGATIVE) Urine Bilirubin SMALL H (NEGATIVE) Urine Ictotest NEGATIVE Urine Urobilinogen 0.2 (<2.0) EU/dL Ur Leukocyte Esterase NEGATIVE (NEGATIVE) Urine RBC 4-6 (0-2/HPF) Urine WBC 2-3 (0-5/HPF) Ur Epithelial Cells FEW (NONE-FEW) Amorphous Sediment RARE (NEGATIVE) Urine Bacteria FEW (NEGATIVE) Urine Mucus RARE (NONE-MOD) 07/29/20 07/29/20 Range/Units 05:38 05:38 WBC (4.0-11.0) K/uL RBC (4.30-5.90) M/uL Hgb (12.0-16.0) g/dL Hct (36.0-46.0) % MCV (80.0-98.0) fL MCH (27.0-32.0) pg MCHC (31.0-37.0) g/dL RDW Std Deviation (28.0-62.0) fl RDW Coeff of Mara (11.0-15.0) % Plt Count (150-400) K/uL MPV (7.40-12.00) fL Neut % (Auto) (48.0-80.0) % Lymph % (Auto) (16.0-40.0) % [place] % (Auto) (0.0-15.0) % Eos % (Auto) (0.0-7.0) % Baso % (Auto) (0.0-1.5) % Neut # (Auto) (1.4-5.7) K/uL Lymph # (Auto) (0.6-2.4) K/uL [place] # (Auto) (0.0-0.8) K/uL Eos # (Auto) (0.0-0.7) K/uL Baso # (Auto) (0.0-0.1) K/uL Nucleated RBC % /100WBC Nucleated RBCs # K/uL Sodium 140 (136-145) mmol/L Potassium 3.0 L (3.5-5.1) mmol/L Chloride 105 (98-107) mmol/L Carbon Dioxide 21.1 (21.0-32.0) mmol/L BUN 6 L (7.0-18.0) mg/dL Creatinine 0.9 (0.6-1.0) mg/dL Est Cr Clr Drug Dosing 89.69 mL/min Estimated GFR (MDRD) > 60.0 ml/min Glucose 83 (74-106) mg/dL Calcium 8.3 L (8.5-10.1) mg/dL Magnesium 2.0 (1.8-2.4) mg/dL Total Bilirubin 0.5 (0.2-1.0) mg/dL Direct Bilirubin 0.10 (0.0-0.5) mg/dL Indirect Bilirubin 0.40 AST 44 H (15-37) IU/L ALT 79 H (14-63) IU/L Alkaline Phosphatase 73 (46-116) U/L Total Protein 6.8 (6.4-8.2) g/dL Albumin 3.5 (3.4-5.0) g/dL Globulin 3.3 (2.6-4.0) g/dL Albumin/Globulin Ratio 1.1 (0.9-1.6) Urine Color Urine Appearance Urine pH (5.0-8.0) Ur Specific [place] (1.001-1.035) Urine Protein (NEGATIVE) mg/dL Urine Glucose (UA) (NEGATIVE) mg/dL Urine Ketones (NEGATIVE) mg/dL Urine Occult Blood (NEGATIVE) Urine Nitrite (NEGATIVE) Urine Bilirubin (NEGATIVE) Urine Ictotest Urine Urobilinogen (<2.0) EU/dL Ur Leukocyte Esterase (NEGATIVE) Urine RBC (0-2/HPF) Urine WBC (0-5/HPF) Ur Epithelial Cells (NONE-FEW) Amorphous Sediment (NEGATIVE) Urine Bacteria (NEGATIVE) Urine Mucus (NONE-MOD) Med Orders - Current: Current Medications Acetaminophen (Tylenol) 650 mg PO Q4H PRN PRN Reason: Pain Albuterol (Ventolin Hfa) 1 - 2 gm INH Q4HR PRN PRN Reason: Dyspnea Buspirone HCl (Buspar) 30 mg PO BID [facility] Last Admin: 07/29/20 08:53 Dose: 30 mg Documented by: Al Hydroxide/Mg Hydroxide 15 (ml/ Lidocaine HCl 5 ml) 0 ml PO Q6H PRN PRN Reason: GERD,[place] Last Admin: 07/28/20 17:30 Dose: 1 each Documented by: Gabapentin (Neurontin) 100 mg PO TID [facility] Last Admin: 07/29/20 06:45 Dose: 100 mg Documented by: Hydroxyzine HCl (Atarax) 50 mg PO DAILY PRN PRN Reason: Anxiety Lactated Ringer's (Ringers, Lactated) 1,000 mls @ 125 mls/hr IV Q8H [facility] Last Admin: 07/28/20 20:42 Dose: 125 mls/hr Documented by: Pantoprazole Sodium 40 mg/ (Sodium Chloride) 10 mls @ 200 mls/hr IV Q24H [facility] Last Admin: 07/28/20 13:07 Dose: 200 mls/hr Documented by: Lisinopril (Prinivil) 20 mg PO DAILY [facility] Last Admin: 07/29/20 08:52 Dose: 20 mg Documented by: Montelukast Sodium (Singulair) 10 mg PO BEDTIME [facility] Last Admin: 07/28/20 20:44 Dose: 10 mg Documented by: Ondansetron HCl (Zofran) 4 mg IVPUSH Q4H PRN PRN Reason: Nausea Last Admin: 07/28/20 20:42 Dose: 4 mg Documented by: Budesonide/Formoterol 160-4.5 Mcg/Puff 6 Gm Inhaler 1 each INH BID [facility] Last Admin: 07/29/20 08:57 Dose: Not Given Documented by: Lisdexamfetamine Dimesylate [Vyvanse] 40 Mg 1 each PO DAILY [facility] Last Admin: 07/29/20 08:57 Dose: Not Given Documented by: Potassium Chloride (Klor-Con M20) 40 meq PO BID@0800,1200 [facility] Last Admin: 07/29/20 08:52 Dose: 40 meq Documented by: Quetiapine Fumarate (Seroquel) 600 mg PO BEDTIME [facility] Last Admin: 07/28/20 20:45 Dose: 600 mg Documented by: Sodium Chloride (Saline Flush) 2.5 ml FLUSH ASDIRECTED PRN PRN Reason: Keep Vein Open Tiotropium [place] (Spiriva Handihaler) 18 mcg INH DAILY [facility] Last Admin: 07/29/20 09:55 Dose: Not Given Documented by: Topiramate (Topamax) 200 mg PO BEDTIME [facility] Last Admin: 07/28/20 20:44 Dose: 200 mg Documented by: Trazodone HCl (Trazodone) 200 mg PO BEDTIME [facility] Last Admin: 07/28/20 20:44 Dose: 200 mg Documented by: Discontinued Medications Al Hydroxide/Mg Hydroxide 15 (ml/ Lidocaine HCl 5 ml) 0 ml PO ONETIME ONE Stop: 07/28/20 07:24 Last Admin: 07/28/20 07:37 Dose: 1 each Documented by: Gabapentin (Neurontin) 100 mg PO TID [facility] Last Admin: 07/29/20 00:11 Dose: Not Given Documented by: Lactated Ringer's (Ringers, Lactated) 1,000 mls @ 999 mls/hr IV .BOLUS ONE Stop: 07/28/20 08:02 Last Admin: 07/28/20 07:24 Dose: 999 mls/hr Documented by: Magnesium Sulfate 2 gm/ Premix 50 mls @ 50 mls/hr IV ONETIME ONE Stop: 07/28/20 09:15 Last Admin: 07/28/20 08:52 Dose: 50 mls/hr Documented by: Potassium Chloride 20 meq/ (Premix) 50 mls @ 25 mls/hr IV ONETIME ONE Stop: 07/28/20 11:00 Last Admin: 07/28/20 09:26 Dose: 25 mls/hr Documented by: Lactated Ringer's (Ringers, Lactated) 1,000 mls @ 125 mls/hr IV ASDIRECTED [facility] Last Admin: 07/28/20 12:56 Dose: 125 mls/hr Documented by: Potassium Chloride 20 meq/ (Premix) 50 mls @ 25 mls/hr IV ONETIME ONE Stop: 07/28/20 15:59 Last Admin: 07/28/20 14:43 Dose: 25 mls/hr Documented by: Potassium Chloride/Sodium Chloride (Normal Saline With 40 Meq Kcl) 1,000 mls @ 150 mls/hr IV ASDIRECTED MANPREET Stop: 07/29/20 03:54 Last Admin: 07/28/20 23:14 Dose: 150 mls/hr Documented by: Metoclopramide HCl (Reglan) 10 mg IVPUSH ONETIME ONE Stop: 07/28/20 07:03 Last Admin: 07/28/20 07:25 Dose: 10 mg Documented by: Metoclopramide HCl (Reglan) 10 mg IVPUSH Q8H PRN PRN Reason: Nausea Ondansetron HCl (Zofran) 4 mg IVPUSH ONETIME ONE Stop: 07/28/20 09:02 Last Admin: 07/28/20 09:26 Dose: 4 mg Documented by: Potassium Chloride (Potassium Chloride) 60 meq PO ONETIME ONE Stop: 07/28/20 08:17 Last Admin: 07/28/20 08:52 Dose: 60 meq Documented by: Sodium Chloride (Saline Flush) 2.5 ml FLUSH ASDIRECTED PRN PRN Reason: Keep Vein Open Last Admin: 07/28/20 08:53 Dose: 2.5 ml Documented by: Sodium Chloride (Saline Flush) 10 ml FLUSH ASDIRECTED PRN PRN Reason: Keep Vein Open Last Admin: 07/28/20 08:53 Dose: 10 ml Documented by:
[2020-07-29] MEDS: Lactated Ringers 1,000 ML IV SCH (12:11)
[2020-07-29] MEDS: Pantoprazole 40 MG in Sodium Chloride 0.9% 10 ML IV SCH (12:12)
== END 2020-07-29 13:05 | disposition home or self-care (01) ==
LOC: MW.ED 06:54 → MW.MS 09:14
PROVIDERS: ADMIT Internal Medicine; ATTEND Internal Medicine
DX: R11.2 Nausea with vomiting, unspecified (principal); E87.6 Hypokalemia; F31.9 Bipolar disorder, unspecified; F41.9 Anxiety disorder, unspecified; F20.9 Schizophrenia, unspecified; J45.909 Unspecified asthma, uncomplicated; K21.9 Gastro-esophageal reflux disease without esophagitis; F17.210 Nicotine dependence, cigarettes, uncomplicated; K44.9 Diaphragmatic hernia without obstruction or gangrene; I10 Essential (primary) hypertension; Z79.899 Other long term (current) drug therapy; Z88.0 Allergy status to penicillin; Z88.8 Allergy status to other drugs, medicaments and biological substances; Z20.828 Contact with and (suspected) exposure to other viral communicable diseases
CPT/HCPCS: 36415; 74019; 80048; 80053; 80076; 81001; 83605; 83690; 83735; 84132; 85025; 87635; 93005; 96361; 96365; 96367; 96375; 99285; A9270; C9113; J2405; J2765; J3475; J3480; J7050; J7120; 96376; 99217; 99218; 99283; G0378; U0002

== ENCOUNTER 2021-03-28 16:08 | Emergency (ER) | payer MEDICAID ==
[2021-03-28] MEDS ORDERED: Ondansetron 4 MG/2 ML SDV IVPUSH ONE (17:43)
[2021-03-28] MEDS ORDERED: Dextrose 5%-Lactated Ringers 1,000 ML IV SCH (17:45)
--- NOTE | 2021-03-28 19:24 | EDM.PDOC ---
<Fidel Kaur - Last Filed: 03/28/21 19:24> ED HPI GENERAL MEDICAL PROBLEM - General Chief Complaint: Gastrointestinal Problem Time Seen by Provider: 03/28/21 17:41 - History of Present Illness INITIAL COMMENTS - FREE TEXT/NARRATIVE: CHIEF COMPLAINT(S): Vomiting HISTORY OF PRESENT ILLNESS: This is a 35-year-old woman with a past medical history of hiatal hernia, schizophrenia, bipolar 1 disorder, and hypertension who comes to the emergency department with a chief complaint of in vomiting. The patient states that starting last night she started to experience nausea and vomiting. She states that she has vomited approximately 15 times. She denies any hematemesis or bilious emesis. She denies any diarrhea. She denies any sick contacts. She denies any chest pain, shortness of breath, dysuria, hematuria, vaginal bleeding. She states that she does have some mild abdominal pain secondary to the vomiting located in the upper part of her abdomen which she rates as 5 out of 10. She denies any radiation of this pain. She states that she took a Zofran which did not really alleviate the pain. She denies any aggravating factors. REVIEW OF SYSTEMS: Constitutional: Denies fever, chills. Eyes: Denies eye pain Ears, Nose, Mouth, & Throat: Denies earache Cardiovascular: Denies chest pain Respiratory: Denies shortness of breath Gastrointestinal: Positive for abdominal pain, nausea, vomiting. Denies diarr hea, hematochezia, hematemesis, bilious emesis Genitourinary: Denies hematuria, dysuria, vaginal bleeding, vaginal discharge Skin:Denies a rash MSK: Denies joint pain Neurological: Denies blurred vision Psychiatric: Denies depression PAST MEDICAL HISTORY: As per history of present illness and as reviewed below otherwise noncontributory. SURGICAL HISTORY: As per history of present illness and as reviewed below otherwise noncontributory. SOCIAL HISTORY: As per history of present illness and as reviewed below otherwise noncontributory. FAMILY HISTORY: As per history of present illness and as reviewed below otherwise noncontributory. EXAMINATION OF ORGAN SYSTEMS/BODY AREAS: Constitutional: Blood pressure 144/77, heart rate 86, respiratory 16 with an oxygen saturation 97% on room air. Temperature 36 point General: Overall well-appearing woman who is in no acute distress Psychiatric: Appropriate mood and affect. Eyes: No scleral icterus or conjunctival erythema ENMT: Moist mucous membranes. No pharyngeal erythema Cardiovascular: Regular, rate, and rhythm. No gallops, murmurs, or rubs. Bilateral upper extremity pulses symmetric and intact. No peripheral edema. No JVD. Respiratory: Lungs clear to auscultation bilaterally. No wheezes, rales, or rhonchi. Gastrointestinal: Soft, minimal tenderness in the epigastric, left upper quadrant and right upper quadrant. No rebound or guarding. Negative Betancourt's and McBurney's. Normoactive bowel sounds Genitourinary: No suprapubic tenderness no CVA tenderness Musculoskeletal: Normal range of motion. Skin: No lesions or abrasions. Neurological: Alert, GCS 15 MEDICAL DECISION MAKING AND COURSE IN THE ED WITH INTERPRETATION/REVIEW OF DIAGNOSTIC STUDIES: This is a 34-year-old with and with a past medical history of bipolar, schizophrenia, hypertension and hiatal hernia who comes to the emergency department with multiple episodes of vomiting with upper quadrant abdominal pain who has stable vital signs. At this time we will provide the patient with Zofran and fluids for symptomatic treatment. Will obtain screening labs including CBC, CMP, UA, and hCG. We will reevaluate after symptomatic treatment. At this time I do not believe any imaging is indicated. Differential does include pancreatitis, gastritis, reflux disease, viral syndrome. At the time of signout patient's labs were pending and reevaluation was also pending. The patient was signed out pending this further work-up DISPOSITION: Patient was signed to oncoming team physician pending laboratory analysis and reevaluation CONDITION: Fair PROCEDURES: None FINAL IMPRESSION(S)/DIAGNOSES: 1. Acute vomiting 2. Acute nausea 3. Acute abdominal pain Fidel Kaur M.D. Abdominal Pain Score (Numeric/FACES): 5 - Related Data Allergies Allergy/AdvReac Type Severity Reaction Status Date / Time Penicillins Allergy Anaphylactic Verified 07/28/20 11:48 Shock ziprasidone [From Geodon] Allergy Hives Verified 07/28/20 11:48 Home Meds: Home Meds QUEtiapine [SEROquel] 400 mg PO BID 07/20/18 [History] Gabapentin [Neurontin] 100 mg PO TID 09/08/18 [History] Albuterol [Proair HFA] 1 - 2 puff INH Q4HR PRN 07/26/20 [History] Tiotropium [Spiriva HandiHaler] 1 dose INH DAILY 07/26/20 [History] hydrOXYzine HCL [hydrOXYzine] 50 mg PO BID PRN 07/26/20 [History] lisinopriL [Lisinopril] 20 mg PO DAILY 07/26/20 [History] Ondansetron [Ondansetron ODT] 4 mg PO Q6H PRN #10 tab.rapdis 07/27/20 [Rx] Past Medical History - Past Health History Medical/Surgical History: Denies Medical/Surgical History HEENT History: Reports: Impaired Vision Other HEENT History: wears glasses Cardiovascular History: Reports: Hypertension Respiratory History: Reports: Asthma Gastrointestinal History: Reports: GERD, Hiatal Hernia Genitourinary History: Reports: None 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: Musculoskeletal History: Reports: Back Pain, Chronic Neurological History: Reports: Seizure Psychiatric History: Reports: Anxiety, Bipolar, Depression, Mood Swings, Schizophrenia Other Psychiatric History: psych illness per pt Endocrine/Metabolic History: Reports: None Hematologic History: Reports: None Immunologic History: Reports: None Oncologic (Cancer) History: Reports: None Dermatologic History: Reports: None - Infectious Disease History Infectious Disease History: Reports: None - Past Surgical History Head Surgeries/Procedures: Reports: None HEENT Surgical History: Reports: None Cardiovascular Surgical History: Reports: None Respiratory Surgical History: Reports: None GI Surgical History: Reports: Cholecystectomy, Other (See Below) Other GI Surgeries/Procedures: STomach biopsy Female Surgical History: Reports: None Endocrine Surgical History: Reports: None Neurological Surgical History: Reports: None Musculoskeletal Surgical History: Reports: Other (See Below) Other Musculoskeletal Surgeries/Procedures:: 2 back surgeries Oncologic Surgical History: Reports: None Dermatological Surgical History: Reports: None Social & Family History - Family History Family Medical History: No Pertinent Family History HEENT: Reports: Glaucoma Cardiac: Reports: [place] Respiratory: Reports: Asthma, COPD Musculoskeletal: Reports: Arthritis Neurological: Reports: Dementia Psychiatric: Reports: Anxiety, Bipolar, Depression, Mood Swings, Psychosis, PTSD, Schizophrenia Endocrine/Metabolic: Reports: Diabetes, type II Oncologic: Reports: Bone, Breast, Prostate - Caffeine Use Caffeine Use: Reports: None - Recreational Drug Use Recreational Drug Use: Yes Drug Use in Last 12 Months: No Recreational Drug Type: Reports: Marijuana/Hashish Recreational Drug Use Frequency: Not Used In Over 6 Months ED ROS GENERAL - Review of Systems Review Of Systems: See Below ED EXAM, GENERAL - Physical Exam Exam: See Below Departure - Departure Disposition: Home, Self-Care 01 Clinical Impression: Vomiting, Dehydration - Discharge Information Instructions: Nausea and Vomiting, Adult Referrals: Jada Bah NP [Primary Care Provider] - Forms: ED Department Discharge Additional Instructions: You were seen and evaluated in the ER today secondary to episodes of nausea and vomiting. Your blood tests in the ED are all within normal limits. You have been given a dose of nausea medicine as well as 1 L of normal saline to assist with hydration. Continue taking the Zofran that was prescribed by her primary care physician. Please make an appointment to see your family doctor in the next 1 to 2 days for reevaluation. Please return to the ER if you have any new or concerning symptoms. The following information is given to patients seen in the emergency department who are being discharged to home. This information is to outline your options for follow-up care. We provide all patients seen in our emergency department with a follow-up referral. The need for follow-up, as well as the timing and circumstances, are variable depending upon the specifics of your emergency department visit. If you don't have a primary care physician on staff, we will provide you with a referral. We always advise you to contact your personal physician following an emergency department visit to inform them of the circumstance of the visit and for follow-up with them and/or the need for any referrals to a consulting specialist. The emergency department will also refer you to a specialist when appropriate. This referral assures that you have the opportunity for follow-up care with a specialist. All of these measure are taken in an effort to provide you with optimal care, which includes your follow-up. Under all circumstances we always encourage you to contact your private physician who remains a resource for coordinating your care. When calling for follow-up care, please make the office aware that this follow-up is from your recent emergency room visit. If for any reason you are refused follow-up, please contact the [facility] Emergency Department at and asked to speak to the emergency department charge nurse. Alyssa Bulger [facility] - Primary Care [address] [place], [place] [id number] [facility] [address] [place] [id number] Sepsis Event Note (ED) - Evaluation Sepsis Screening Result: No Definite Risk <Raul Smart - Last Filed: 03/28/21 20:35> ED HPI GENERAL MEDICAL PROBLEM - History of Present Illness INITIAL COMMENTS - FREE TEXT/NARRATIVE: 8:32 PM: Patient signed out at 7 PM. Patient seen and evaluated by me and reports that she is completely symptom-free at this time and is requesting to be discharged home. Patient's labs are all within normal limits. Patient reports her nausea is significant improved with the medication given in the ED. Patient reports that she does have a prescription for Zofran that has been prescribed to her by her primary care Dr Already. Repeat exam of the abdomen: Abd: Soft, nondistended, no rebound/guarding, no psoas or obturator signs, no tenderness at Mcberney's point, no Betancourt's sign. Pt does not present with an exam that would be consistent with an acute surgical abdomen at this time, nontender to palpation. Patient required treatment with intravenous normal saline solution secondary to clinical evidence of dehydration as manifested by history and physical examination. Etiology the patient's symptoms are unclear. May be related to gastritis versus viral illness however at this time patient does not meet criteria for inpatient or observation level of care and can be closely observed as an outpatient. Patient has been instructed to follow-up with her primary care physician. Reassessment at the time of disposition demonstrates that the patient is in no acute distress. The patient has remained stable throughout the entire ED visit and is without objective evidence for acute process requiring urgent inte rvention or hospitalization. The patient is stable for discharge, counseling is provided as documented above, discussed symptomatic treatment and specific conditions for return. I have spoken with the patient/caregiver and discussed todays findings, in addition to providing specific details for the plan of care. Questions are answered and there is agreement with the plan. ED ROS GENERAL - Review of Systems Review Of Systems: See Below ED EXAM, GENERAL - Physical Exam Exam: See Below Course - Vital Signs Last Recorded V/S: Last Vital Signs Temp 97.8 F 03/28/21 17:05 Pulse 86 03/28/21 17:05 Resp 16 03/28/21 17:05 BP 144/77 H 03/28/21 17:05 Pulse Ox 97 03/28/21 17:05 - Orders/Labs/Meds Orders: Active Orders 24 hr Category Date Time Status Dextrose 5%-Lactated Ringers 1,000 ml Med 03/28/21 17:45 Active IV ASDIRECTED Medication Orders Dextrose/Lactated Ringer's (Dextrose 5%-Lactated Ringers) 1,000 mls @ 999 mls/hr IV ASDIRECTED MANPREET Last Admin: 03/28/21 18:48 Dose: 999 mls/hr Documented by: MICHAELA Labs: Laboratory Tests 03/28/21 03/28/21 03/28/21 Range/Units 17:25 18:26 18:26 WBC 10.79 (4.0-11.0) K/uL RBC 5.31 (4.30-5.90) M/uL Hgb 16.0 (12.0-16.0) g/dL Hct 46.2 H (36.0-46.0) % MCV 87.0 (80.0-98.0) fL MCH 30.1 (27.0-32.0) pg MCHC 34.6 (31.0-37.0) g/dL RDW Std Deviation 44.5 (28.0-62.0) fl RDW Coeff of Mara 14 (11.0-15.0) % Plt Count 347 (150-400) K/uL MPV 9.60 (7.40-12.00) fL Neut % (Auto) 69.2 (48.0-80.0) % Lymph % (Auto) 19.7 (16.0-40.0) % [place] % (Auto) 8.4 (0.0-15.0) % Eos % (Auto) 2.4 (0.0-7.0) % Baso % (Auto) 0.3 (0.0-1.5) % Neut # (Auto) 7.5 H (1.4-5.7) K/uL Lymph # (Auto) 2.1 (0.6-2.4) K/uL [place] # (Auto) 0.9 H (0.0-0.8) K/uL Eos # (Auto) 0.3 (0.0-0.7) K/uL Baso # (Auto) 0.0 (0.0-0.1) K/uL Nucleated RBC % 0.0 /100WBC Nucleated RBCs # 0 K/uL Sodium 141 (136-145) mmol/L Potassium 3.9 (3.5-5.1) mmol/L Chloride 101 (98-107) mmol/L Carbon Dioxide 28.8 (21.0-32.0) mmol/L BUN 12 (7.0-18.0) mg/dL Creatinine 1.1 H (0.6-1.0) mg/dL Est Cr Clr Drug Dosing 68.10 mL/min Estimated GFR (MDRD) 57.2 ml/min Glucose 102 (74-106) mg/dL Calcium 8.8 (8.5-10.1) mg/dL Total Bilirubin 0.5 (0.2-1.0) mg/dL AST 19 (15-37) IU/L ALT 28 (14-63) IU/L Alkaline Phosphatase 65 (46-116) U/L Total Protein 8.1 (6.4-8.2) g/dL Albumin 3.9 (3.4-5.0) g/dL Globulin 4.2 H (2.6-4.0) g/dL Albumin/Globulin Ratio 0.9 (0.9-1.6) Lipase 65 L (73-393) U/L HCG, Qual (NEG) Urine Color YELLOW Urine Appearance HAZY Urine pH 6.0 (5.0-8.0) Ur Specific [place] 1.025 (1.001-1.035) Urine Protein NEGATIVE (NEGATIVE) mg/dL Urine Glucose (UA) NEGATIVE (NEGATIVE) mg/dL Urine Ketones NEGATIVE (NEGATIVE) mg/dL Urine Occult Blood TRACE-INTACT H (NEGATIVE) Urine Nitrite NEGATIVE (NEGATIVE) Urine Bilirubin SMALL H (NEGATIVE) Urine Ictotest NEGATIVE Urine Urobilinogen 1.0 (<2.0) EU/dL Ur Leukocyte Esterase NEGATIVE (NEGATIVE) Urine RBC 0-2 (0-2/HPF) Urine WBC 0-2 (0-5/HPF) Ur Epithelial Cells FEW (NONE-FEW) Urine Bacteria FEW (NEGATIVE) 03/28/21 Range/Units 18:26 WBC (4.0-11.0) K/uL RBC (4.30-5.90) M/uL Hgb (12.0-16.0) g/dL Hct (36.0-46.0) % MCV (80.0-98.0) fL MCH (27.0-32.0) pg MCHC (31.0-37.0) g/dL RDW Std Deviation (28.0-62.0) fl RDW Coeff of Mara (11.0-15.0) % Plt Count (150-400) K/uL MPV (7.40-12.00) fL Neut % (Auto) (48.0-80.0) % Lymph % (Auto) (16.0-40.0) % [place] % (Auto) (0.0-15.0) % Eos % (Auto) (0.0-7.0) % Baso % (Auto) (0.0-1.5) % Neut # (Auto) (1.4-5.7) K/uL Lymph # (Auto) (0.6-2.4) K/uL [place] # (Auto) (0.0-0.8) K/uL Eos # (Auto) (0.0-0.7) K/uL Baso # (Auto) (0.0-0.1) K/uL Nucleated RBC % /100WBC Nucleated RBCs # K/uL Sodium (136-145) mmol/L Potassium (3.5-5.1) mmol/L Chloride (98-107) mmol/L Carbon Dioxide (21.0-32.0) mmol/L BUN (7.0-18.0) mg/dL Creatinine (0.6-1.0) mg/dL Est Cr Clr Drug Dosing mL/min Estimated GFR (MDRD) ml/min Glucose (74-106) mg/dL Calcium (8.5-10.1) mg/dL Total Bilirubin (0.2-1.0) mg/dL AST (15-37) IU/L ALT (14-63) IU/L Alkaline Phosphatase (46-116) U/L Total Protein (6.4-8.2) g/dL Albumin (3.4-5.0) g/dL Globulin (2.6-4.0) g/dL Albumin/Globulin Ratio (0.9-1.6) Lipase (73-393) U/L HCG, Qual NEGATIVE (NEG) Urine Color Urine Appearance Urine pH (5.0-8.0) Ur Specific [place] (1.001-1.035) Urine Protein (NEGATIVE) mg/dL Urine Glucose (UA) (NEGATIVE) mg/dL Urine Ketones (NEGATIVE) mg/dL Urine Occult Blood (NEGATIVE) Urine Nitrite (NEGATIVE) Urine Bilirubin (NEGATIVE) Urine Ictotest Urine Urobilinogen (<2.0) EU/dL Ur Leukocyte Esterase (NEGATIVE) Urine RBC (0-2/HPF) Urine WBC (0-5/HPF) Ur Epithelial Cells (NONE-FEW) Urine Bacteria (NEGATIVE) Meds: Medications Generic Name Dose Route Start Last Admin Trade Name Freq PRN Reason Stop Dose Admin Dextrose/Lactated Ringer's 1,000 mls @ 999 mls/hr 03/28/21 17:45 03/28/21 18:48 Dextrose 5%-Lactated Ringers IV 999 mls/hr ASDIRECTED MANPREET Administration Discontinued Medications Generic Name Dose Route Start Last Admin Trade Name Freq PRN Reason Stop Dose Admin Ondansetron HCl 4 mg 03/28/21 17:43 03/28/21 18:48 Ondansetron 4 Mg/2 Ml Sdv IVPUSH 03/28/21 17:44 4 mg ONETIME ONE Administration Departure - Departure Time of Disposition: 20:34 Condition: Good Sepsis Event Note (ED) - Focused Exam Vital Signs: Vital Signs Temp Pulse Resp BP Pulse Ox 03/28/21 17:05 97.8 F 86 16 144/77 H 97
[2021-03-28 19:36] LABS: CARBON DIOXIDE,CO2 28.8 mmol/L (21.0-32.0); POTASSIUM,K 3.9 mmol/L (3.5-5.1)
== END 2021-03-28 20:44 | disposition home or self-care (01) ==
LOC: MW.ED 16:08
DX: E86.0 Dehydration (principal); R10.11 Right upper quadrant pain; R10.816 Epigastric abdominal tenderness; R11.2 Nausea with vomiting, unspecified; I10 Essential (primary) hypertension; J45.909 Unspecified asthma, uncomplicated; Z88.5 Allergy status to narcotic agent; Z88.0 Allergy status to penicillin; Z79.899 Other long term (current) drug therapy
CPT/HCPCS: 36415; 80053; 81001; 83690; 84703; 85025; 96374; 99284; J2405; J7121; 99283

== ENCOUNTER 2021-04-26 08:25 | Day surgery (SDC) | payer MEDICAID ==
[~2021-04-26 08:25] MED LIST: Albuterol 0.083% 2.5 MG/3 ML Neb Soln NEB PRN; Lactated Ringers 1,000 ML IV SCH; Metoclopramide 10 MG/2 ML SDV IVPUSH PRN; Naloxone 0.4 MG/ML Syringe IVPUSH PRN; Ondansetron 4 MG/2 ML SDV IVPUSH PRN; Sodium Chloride 0.9% 10 ML SDV IV PRN; Sodium Chloride 0.9% 10 ML Syringe FLUSH PRN; Sodium Chloride 0.9% 2.5 ML Syringe FLUSH PRN
[2021-04-26] MEDS ORDERED: Ondansetron 4 MG/2 ML SDV ONE (08:52)
[2021-04-26] MEDS ORDERED: Propofol 200 MG/20 ML SDV ONE (08:52)
[2021-04-26] MEDS ORDERED: Lidocaine 2% 5 ML SDV ONE (08:52)
[2021-04-26] MEDS ORDERED: fentaNYL 100 MCG/2 ML SDV ONE (08:52)
--- NOTE | 2021-04-26 08:59 | PCM.PREANE ---
Preanesthetic Assessment - Anesthesia/Transfusion/Family Hx Anesthesia History: Prior Anesthesia Without Reaction Transfusion History: No Prior Transfusion(s) - Review of Systems General: No Symptoms Pulmonary: No Symptoms Cardiovascular: No Symptoms Gastrointestinal: No Symptoms Neurological: No Symptoms Other: Reports: None - Physical Assessment NPO Status Date: 04/26/21 NPO Status Time: 00:00 Height: 5 ft 7 in Weight: 263 lb ASA Class: 3 Mental Status: Alert & Oriented x3 Dentition: Reports: Normal Dentition ROM/Head Extension: Full Lungs: Clear to Auscultation, Normal Respiratory Effort Cardiovascular: Regular Rate, Regular Rhythm - Lab Values: Laboratory Last Values Urine HCG, Qual NEGATIVE (NEGATIVE) 04/26/21 08:38 - Allergies Allergies/Adverse Reactions: Allergies Allergy/AdvReac Type Severity Reaction Status Date / Time coconut Allergy Hives Verified 04/21/21 13:04 gluten Allergy Nausea and Verified 04/21/21 13:04 Vomiting Penicillins Allergy Anaphylactic Verified 04/21/21 13:04 Shock ziprasidone [From Geodon] Allergy Hives Verified 04/21/21 13:04 - Acknowledgements Anesthesia Type Planned: General Anesthesia Pt an Appropriate Candidate for the Planned Anesthesia: Yes Alternatives and Risks of Anesthesia Discussed w Pt/Guardian: Yes Pt/Guardian Understands and Agrees with Anesthesia Plan: Yes PreAnesthesia Questionnaire - Past Health History Medical/Surgical History: Denies Medical/Surgical History HEENT History: Reports: Other (See Below) Other HEENT History: wears glasses Cardiovascular History: Reports: Hypertension Respiratory History: Reports: Asthma, Sleep Apnea Other Respiratory History: does not use CPAP Gastrointestinal History: Reports: Hiatal Hernia, Other (See Below) Other Gastrointestinal History: currently sarah N&V and abdominal pain Genitourinary History: Reports: None 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 Musculoskeletal History: Reports: Back Pain, Chronic, Fracture Other Musculoskeletal History: hx of fx arm and wrist Neurological History: Reports: None Psychiatric History: Reports: Anxiety, Bipolar, Depression, Schizophrenia Other Psychiatric History: psych illness per pt Endocrine/Metabolic History: Reports: Obesity/BMI 30+ Hematologic History: Reports: None Immunologic History: Reports: None Oncologic (Cancer) History: Reports: Other (See Below) Other Oncologic History: thinks she had Ovarian cancer in the past- had a Hysterectomy but no Oopherectomy Dermatologic History: Reports: None - Infectious Disease History Infectious Disease History: Reports: None - Past Surgical History HEENT Surgical History: Reports: None Cardiovascular Surgical History: Reports: None Respiratory Surgical History: Reports: None GI Surgical History: Reports: Cholecystectomy, EGD Female Surgical History: Reports: Hysterectomy Endocrine Surgical History: Reports: None Neurological Surgical History: Reports: Lumbar Spine, Spinal Fusion Other Neurological Surgeries/Procedures: has metal hardware Musculoskeletal Surgical History: Reports: None Oncologic Surgical History: Reports: None Dermatological Surgical History: Reports: None - SUBSTANCE USE Tobacco Use Status *Q: Current Every Day Tobacco User Tobacco Use Within Last Twelve Months: Cigarettes Recreational Drug Use History: Yes Recreational Drug Type: Reports: Marijuana/Hashish - HOME MEDS Home Medications: Home Meds QUEtiapine [SEROquel] 800 mg PO BEDTIME 07/20/18 [History] Gabapentin [Neurontin] 100 mg PO TID 09/08/18 [History] Albuterol [Proair HFA] 1 - 2 puff INH Q4HR PRN 07/26/20 [History] Tiotropium [Spiriva HandiHaler] 1 dose INH DAILY PRN 07/26/20 [History] hydrOXYzine HCL [hydrOXYzine] 50 mg PO BID 07/26/20 [History] lisinopriL [Lisinopril] 20 mg PO DAILY 07/26/20 [History] Ondansetron [Ondansetron ODT] 4 mg PO Q6H PRN #10 tab.rapdis 07/27/20 [Rx] - CURRENT (IN HOUSE) MEDS Current Meds: Current Medications Albuterol (Albuterol 0.083% 2.5 Mg/3 Ml Neb Soln) 2.5 mg NEB ONETIME PRN PRN Reason: Wheezing Lactated Ringer's (Ringers, Lactated) 1,000 mls @ 125 mls/hr IV ASDIRECTED MANPREET Metoclopramide HCl (Metoclopramide 10 Mg/2 Ml Sdv) 10 mg IVPUSH ONETIME PRN PRN Reason: Nausea/Vomiting Naloxone HCl (Naloxone 0.4 Mg/Ml Syringe) 0.1 mg IVPUSH ASDIRECTED PRN PRN Reason: Respiratory Depression Ondansetron HCl (Ondansetron 4 Mg/2 Ml Sdv) 4 mg IVPUSH ONETIME PRN PRN Reason: Nausea/Vomiting Sodium Chloride (Sodium Chloride 0.9% 10 Ml Syringe) 10 ml FLUSH ASDIRECTED PRN PRN Reason: Keep Vein Open Sodium Chloride (Sodium Chloride 0.9% 2.5 Ml Syringe) 2.5 ml FLUSH ASDIRECTED PRN PRN Reason: Keep Vein Open Sodium Chloride (Sodium Chloride 0.9% 10 Ml Syringe) 10 ml FLUSH ASDIRECTED PRN PRN Reason: Keep Vein Open Sodium Chloride (Sodium Chloride 0.9% 2.5 Ml Syringe) 2.5 ml FLUSH ASDIRECTED PRN PRN Reason: Keep Vein Open Sodium Chloride (Sodium Chloride 0.9% 10 Ml Sdv) 10 ml IV ASDIRECTED PRN PRN Reason: IV Use Discontinued Medications Fentanyl (Fentanyl 100 Mcg/2 Ml Sdv) Confirm Administered Dose 100 mcg .ROUTE .STK-MED ONE Stop: 04/26/21 08:53 Lidocaine (Lidocaine 2% 5 Ml Sdv) Confirm Administered Dose 5 ml .ROUTE .STK-MED ONE Stop: 04/26/21 08:53 Ondansetron HCl (Ondansetron 4 Mg/2 Ml Sdv) Confirm Administered Dose 4 mg .ROUTE .STK-MED ONE Stop: 04/26/21 08:53 Propofol (Propofol 200 Mg/20 Ml Sdv) Confirm Administered Dose 200 mg .ROUTE .STK-MED ONE Stop: 04/26/21 08:53
[2021-04-26] MEDS ORDERED: Glycopyrrolate 0.2 MG/ML SDV ONE (10:39)
[2021-04-26] MEDS ORDERED: Midazolam 1 MG/ML 2 ML SDV ONE (10:42)
--- NOTE | 2021-04-26 11:31 | PCM48HPAN ---
Post Anesthesia Note - EVALUATION WITHIN 48HRS OF ANESTHETIC Vital Signs in Normal Range: Yes Patient Participated in Evaluation: Yes Respiratory Function Stable: Yes Airway Patent: Yes Cardiovascular Function Stable: Yes Hydration Status Stable: Yes Pain Control Satisfactory: Yes Nausea and Vomiting Control Satisfactory: Yes Mental Status Recovered: Yes Vital Signs: Last Vital Signs Temp 97.3 F 04/26/21 09:16 Pulse 103 H 04/26/21 11:19 Resp 13 04/26/21 11:19 BP 123/75 04/26/21 11:19 Pulse Ox 95 04/26/21 11:19
--- NOTE | 2021-04-26 11:31 | PCM.POSTAN ---
POST ANESTHESIA ASSESSMENT - MENTAL STATUS Mental Status: Alert, Oriented - VITAL SIGNS Vital Signs: Last Vital Signs Temp 97.3 F 04/26/21 09:16 Pulse 103 H 04/26/21 11:19 Resp 13 04/26/21 11:19 BP 123/75 04/26/21 11:19 Pulse Ox 95 04/26/21 11:19 - RESPIRATORY Respiratory Status: Respiratory Rate WNL, Airway Patent, O2 Saturation Stable - CARDIOVASCULAR CV Status: Pulse Rate WNL, Blood Pressure Stable - GASTROINTESTINAL GI Status: No Symptoms - POST OP HYDRATION Hydration Status: Adequate & Stable
--- NOTE | 2021-04-26 12:27 | PCM.OPNOTE ---
- General Post-Op/Procedure Note Date of Surgery/Procedure: 04/26/21 Operative Procedure(s): Diagnostic EGD Findings: Hiatal hernia with mild esophagitis and reflux Pre Op Diagnosis: Heartburn Post-Op Diagnosis: Hiatal hernia with reflux and esophagitis Anesthesia Technique: MAIDA Primary Surgeon: Yi Villatoro Condition: Good Free Text/Narrative:: Intake & Output 04/25/21 04/26/21 04/26/21 22:59 06:59 14:59 Intake Total 650 Balance 650
--- NOTE | 2021-04-26 19:04 | OR ---
SURGEON: YI VILLATORO MD DATE OF PROCEDURE: 04/26/2021 PREOPERATIVE DIAGNOSIS: Reflux. POSTOPERATIVE DIAGNOSIS: Hiatal hernia with gastroesophageal reflux disease and esophagitis. PROCEDURE PERFORMED: Diagnostic esophagogastroduodenoscopy with biopsies. PRIMARY SURGEON: Yi Villatoro MD ANESTHESIA: MAC. INSTRUMENT USED: Olympus endoscope. EXTENT OF EXAM: To the second portion of duodenum. PREPARATION: Good. LIMITATIONS: None. INDICATIONS FOR EXAMINATION: The patient is a 35-year-old female who presented to clinic with increasing reflux symptoms. She has also had some intermittent nausea and vomiting. The patient states that she was previously diagnosed with a hiatal hernia. She was placed on lansoprazole which has been helping her symptoms. I explained the need for diagnostic EGD. I explained the procedure, expected perioperative course, and the risks including bleeding, infection, or damage to surrounding structures including perforation. She verbalized understanding and wishes to proceed. PROCEDURE IN DETAIL: The patient was brought in to the endoscopy suite and placed in a left lateral decubitus position. A time-out was completed verifying the patient's name, age, date of , allergies, and procedure to be performed. A bite block was placed in the patient's mouth. Monitored anesthesia care was induced and continuous oxygen was provided via nasal cannula throughout the procedure. After adequate sedation was achieved, a well-lubricated endoscope was placed in the patient's mouth and advanced under direct visualization to the second portion of duodenum. This appeared normal and a photograph was taken. The scope was then fully withdrawn while examining the color, texture, anatomy, and integrity mucosa of the upper GI tract. The duodenal mucosa all appeared normal. A biopsy was taken within the duodenal bulb and sent to Pathology labeled as duodenum. The pylorus appeared normal when I brought the scope into the stomach. I retroflexed the scope and noticed a small hiatal hernia at the GE junction. A photograph of these were taken. Biopsies were taken of the gastric antrum, body, and fundus and sent for histologic review and H pylori testing. No gross inflammation or ulceration was noted. The scope was then brought into the hiatal hernia sac. A photograph was taken of this and a photograph taken of the Z-line. The Z-line grossly appeared normal, but there was some evidence of possible esophagitis at the distal esophageal mucosa. A biopsy was taken at the Z-line of the esophagus as well as 1 cm above this. The remainder of the esophagus appeared normal. I did note gastric contents skilled nursing up the esophagus consistent with reflux. The scope was removed and the procedure terminated. The patient tolerated the procedure well and was transferred to the PACU in stable condition. ENDOSCOPIC DIAGNOSIS: Hiatal hernia with gastroesophageal reflux disease and esophagitis. RECOMMENDATIONS: Follow up in clinic in two weeks and continue to take prescribed PPI. DOC DAMIAN /[id number]
== END 2021-04-26 11:40 | disposition home or self-care (01) ==
LOC: MW.SDS 08:25
PROVIDERS: ATTEND Surgery
DX: K21.00 Gastro-esophageal reflux disease with esophagitis, without bleeding (principal); K44.9 Diaphragmatic hernia without obstruction or gangrene; I10 Essential (primary) hypertension; E66.9 Obesity, unspecified; J44.9 Chronic obstructive pulmonary disease, unspecified; F17.210 Nicotine dependence, cigarettes, uncomplicated; Z88.0 Allergy status to penicillin; Z88.8 Allergy status to other drugs, medicaments and biological substances; Z79.899 Other long term (current) drug therapy; Z90.49 Acquired absence of other specified parts of digestive tract; Z98.890 Other specified postprocedural states; Z68.41 Body mass index [BMI] 40.0-44.9, adult
CPT/HCPCS: 43239; 81025; 88305; J2250; J2405; J2704; J3010; J3490; J7120; 00731